=== PATIENT | female | born 1980 | race Caucasian/White ===

== ENCOUNTER 2016-02-24 17:27 | Emergency (ER) | payer MEDICAID ==
[~2016-02-24] VITALS: Ht 152.4 cm; Wt 62.5 kg
[~2016-02-24 17:27] MED LIST: FAMO-18 PO; HYDR-3498 PO; HYDR-906 PO; METR500T PO
[2016-02-24 18:10] VITALS: Ht 152.4 cm; Wt 62.5 kg
[2016-02-24] MEDS ORDERED: ONDANSETRON 4 MG INJ IV STA ×2 (20:51→22:28)
[2016-02-24] MEDS ORDERED: morphine 4 MG/ML VIAL IV STA (20:51)
[2016-02-24] MEDS ORDERED: SOD CHLORIDE 0.9% 1,000 ML IV STA (20:51)
--- NOTE | 2016-02-24 21:27 | RADRPT ---
PROCEDURE: US Abdomen (right upper quadrant). CLINICAL INDICATION: Abdominal pain TECHNIQUE: Multiple real-time longitudinal and transverse images of the right upper quadrant of th e abdomen were acquired utilizing a curved array transducer. Images were reviewed on a high-resoluti on PACS workstation. COMPARISON: Correlation abdominal CT 11/27/2015 FINDINGS: The liver measures 15 cm length. The gallbladder is absent. The common bile duct measures 5 mm. The portal vein is patent. No right renal hydronephrosis. IMPRESSION: Status post cholecystectomy. Normal caliber common bile duct. No right renal hydronephrosis. RPTAT: AA .Humberto Kelley MD, MD Date Time Electronically viewed and signed by .Humberto Kelley MD, on 02/24/2016 21:27 .T/
[2016-02-24 21:43] LABS: ADD UMIC YES; URINE BILIRUBIN (Dip) NEGATIVE (NEGATIVE); URINE BLOOD (Dip) NEGATIVE (NEGATIVE); URINE COLOR LT. YELLOW (YELLOW); URINE GLUCOSE (Dip) NEGATIVE (NEGATIVE); URINE KETONES (Dip) NEGATIVE (NEGATIVE); URINE LEUKOCYTE ESTERASE (Dip) 2+ (NEGATIVE); URINE NITRITE (Dip) NEGATIVE (NEGATIVE); URINE TOTAL PROTEIN (Dip) NEGATIVE (NEGATIVE); URINE UROBILINOGEN (Dip) 0.2 E.U./dL (0.1-1.0)
[2016-02-24 21:43] LABS: BASOPHIL # 0.1 10^3/ul (0.0-0.1); BASOPHILS % 0.5 % (0.0-2.0); EOSINOPHILS # 0.2 10^3/ul (0.0-0.5); EOSINOPHILS % 1.8 % (0.0-7.0); HEMATOCRIT 40.5 % (37.0-47.0); LYMPHOCYTES # 2.7 10^3/ul (0.8-2.9); LYMPHOCYTES % 24.4 % (15.0-51.0); MEAN CORPUSCULAR HEMOGLOBIN 28.8 pg (29.0-33.0); MEAN CORPUSCULAR HGB CONC 34.5 g/dl (32.0-37.0); MEAN CORPUSCULAR VOLUME 83.5 fl (82.0-101.0); MEAN PLATELET VOLUME 9.3 fl (7.4-10.4); MONOCYTE # 0.4 10^3/ul (0.3-0.9); MONOCYTES % 3.2 % (0.0-11.0); NEUTROPHIL # 7.7 10^3/ul (1.6-7.5); NEUTROPHILS % 70.1 % (39.0-77.0); PLATELET COUNT 271 10^3/UL (140-440); RED BLOOD COUNT 4.85 10^6/ul (4.20-5.40); RED CELL DISTRIBUTION WIDTH 13.1 % (11.5-14.5)
[2016-02-24 21:44] LABS: CONDITION 1
[2016-02-24 21:50] LABS: ALBUMIN 4.9 g/dl (3.3-4.9)
[2016-02-24 21:51] LABS: POTASSIUM 3.5 mmol/L (3.5-5.1)
[2016-02-24 21:53] LABS: BACTERIA,URINE MODERATE; SQUAMOUS EPITHELIAL CELL,UR MODERATE; URINE RBCS 0-2 /HPF (0)
[2016-02-24 21:53] LABS: BILIRUBIN,INDIRECT 0.7 mg/dl (0-1.1); BILIRUBIN,TOTAL 0.7 mg/dl (0.2-1.3); CREATININE 0.62 mg/dl (0.44-1.00)
[2016-02-24 21:54] LABS: ALBUMIN/GLOBULIN RATIO 1.13; CALCIUM 9.2 mg/dl (8.4-10.2); TOTAL PROTEIN 9.2 g/dl (6.1-8.1)
[2016-02-24] MEDS ORDERED: HYDR-902 PO (22:04)
[2016-02-24] MEDS ORDERED: NITR-58 PO (22:04)
--- NOTE | 2016-02-24 22:08 | ERD ---
ER Documentation Chief Complaint Date/Time DATE: 02/24/16 TIME: 22:05 Chief Complaint Pt with AP and vomiting X 3 days. HPI Patient is a 35-year-old female who presents complaining of right upper quadrant abdominal pain for 3 days. She admits to vomiting. Pain is 10 out of 10. Denies any dysuria or hematuria but does admit to urinary frequency. Denies fever. Denies any change with food. ROS All systems reviewed and are negative except as per history of present illness. Medications Home Meds Active Scripts Hydrocodone/Acetaminophen ([place] 10-325 Tablet) 1 Each Tablet, 1 TAB PO Q6H Y for PAIN, #20 TAB Prov:JAXON MORAN PA-C 02/24/16 Nitrofurantoin Monohyd Macrocr* (Macrobid*) 100 Mg Capsr, 100 MG PO BID for 7 Days, CAP Prov:JAXON MORAN PA-C 02/24/16 Hydrocodone/Acetaminophen ([place] 5-325 Tablet) 1 Each Tablet, 1 TAB PO Q6H Y for PAIN, #7 TAB Prov:NHI MOHAMUD PA-C 11/27/15 Famotidine* (Pepcid*) 20 Mg Tablet, 20 MG PO BID for 4 Days, #30 TAB Prov:NHI MOHAMUD PA-C 11/27/15 Metronidazole* (Flagyl*) 500 Mg Tablet, 500 MG PO Q8 for 7 Days, TAB Prov:[employer] COMMUNICATIONS MANAGER 02/22/15 Hydrocodone Bit-Acetaminophen* ([place]*) 5-325 Mg Tab, 1 TAB PO Q6H Y for PAIN, # 20 TAB Prov:[employer] COMMUNICATIONS MANAGER 02/22/15 Allergies Allergies: Coded Allergies: ciprofloxacin (Verified Allergy, Severe, NAUSEA, DYSPNEA, RIGIDITY OF HANDS, LEGS, 02/20/15) ampicillin (Verified Allergy, Unknown, RASH, 02/20/15) PMhx/Soc History of Surgery: Yes ( ) Anesthesia Reaction: No Hx Neurological Disorder: No Hx Respiratory Disorders: No Hx Cardiac Disorders: No Hx Psychiatric Problems: No Hx Miscellaneous Medical Probl: No (gallstones) Hx Alcohol Use: No Hx Substance Use: No Hx Tobacco Use: No FmHx Family History: No diabetes Physical Exam Vitals Vital Signs Date Time Temp Pulse Resp B/P Pulse Ox O2 Delivery O2 Flow Rate FiO2 02/24/16 18:10 98.0 95 20 136/79 99 Physical Exam General: well developed, well nourished, alert, nontoxic, no distress Head: normocephalic, atraumatic Neck: Supple, nontender, no lymphadenopathy, no midline tenderness Oropharynx: no tonsilar erythema or edema, uvula midline, no exudates, no kissing tonsils, no drooling Respiratory: Clear to auscaultation bilaterally, speaks in full sentences, no use of accesory muscles or labored breathing, no rales, ronchi, or wheezing Cardiovascular: RRR, No murmurs GI: soft, non tender, non distended, negative murphys sign, negative mcburneys point tenderness, no cva tenderness bilaterally, no rebound or guarding Back: no midline tenderness, no step offs or bony abnormalities, sensation to light touch in tact Result Diagram: 02/24/16210402/24/162104 Results 24 hrs Laboratory Tests Test 02/24/16 21:00 02/24/16 21:05 Urine Bacteria MODERATE Urine Bilirubin NEGATIVE Urine Clarity SL HAZY Urine Color LT. YELLOW Urine Glucose NEGATIVE% Urine Hemoglobin NEGATIVE Urine Ketones NEGATIVE Urine Leukocyte Esterase 2+ Urine Microscopic RBC 0-2/HPF Urine Microscopic WBC 10-25/HPF Urine Nitrite NEGATIVE Urine Specific [place] 1.010 Urine Squamous Epithelial Cells MODERATE Urine Total Protein NEGATIVE Urine Urobilinogen 0.2 E.U./dL Urine pH 6.0 Alanine Aminotransferase (ALT/SGPT) 21IU/L Albumin 4.9g/dl Albumin/Globulin Ratio 1.13 Alkaline Phosphatase 82IU/L Anion Gap 22 Aspartate Amino Transf (AST/SGOT) 26IU/L Basophils # 0.110^3/ul Basophils % 0.5% Blood Morphology Comment Blood Urea Nitrogen 12mg/dl Calcium Level 9.2mg/dl Carbon Dioxide Level 23mmol/L Chloride Level 103mmol/L Creatinine 0.62mg/dl Direct Bilirubin 0.00mg/dl Eosinophils # 0.210^3/ul Eosinophils % 1.8% Globulin 4.30g/dl Glucose Level 119mg/dl Hematocrit 40.5% Hemoglobin 14.0g/dl Indirect Bilirubin 0.7mg/dl Lipase 94U/L Lymphocytes # 2.710^3/ul Lymphocytes % 24.4% Mean Corpuscular Hemoglobin 28.8pg Mean Corpuscular Hemoglobin Concent 34.5g/dl Mean Corpuscular Volume 83.5fl Mean Platelet Volume 9.3fl Monocytes # 0.410^3/ul Monocytes % 3.2% Neutrophils # 7.710^3/ul Neutrophils % 70.1% Nucleated Red Blood Cells # 0.010^3/ul Nucleated Red Blood Cells % 0.0/100WBC Platelet Count 60048^3/UL Potassium Level 3.5mmol/L Red Blood Count 4.8510^6/ul Red Cell Distribution Width 13.1% Sodium Level 144mmol/L Total Bilirubin 0.7mg/dl Total Protein 9.2g/dl White Blood Count 11.010^3/ul Current Medications Medications (Trade) Dose Ordered Sig/Lalito Route PRN Reason Start Time Stop Time Status Last Admin Dose Admin Sodium Chloride (NS) 1,000 ml @ 1,000 mls/hr Q1H STAT IV 02/24/16 20:51 02/24/16 21:50 DC 02/24/16 21:09 Morphine Sulfate (morphine) 4 mg ONCE STAT IV 02/24/16 20:51 02/24/16 20:53 DC 02/24/16 21:09 Ondansetron HCl (Zofran Inj) 4 mg ONCE STAT IV 02/24/16 20:51 02/24/16 20:53 DC 02/24/16 21:09 Procedures/MDM 35-year-old female presents with right upper quadrant abdominal pain. Her vital signs are all within normal limits. Her labs are unremarkable other than mildly elevated white blood cell count of 11 and evidence of possible urinary tract infection on urinalysis. Ultrasound shows she was status post cholecystectomy. Patient was discharged with Kayli and Tami for pain control. Recommended this patient follow up with her primary care doctor within 48 hours or return to the emergency room for any worsening of symptoms. However this time I do believe there is suitable for outpatient management. I answered all their questions and they agreed with the plan and were discharged home. Departure Diagnosis: Primary Impression: Cystitis Condition: Stable Patient Instructions: Cystitis Additional Instructions: Llame al doctor SOFYA y uri shadi SELVIN PARA DENTRO DE 1-2 YI.Dgale a la secretaria que nosotros le instruimos hacer esta selvin.Avise o llame si harmon condicin se empeora antes de la selvin. Regresa aqui si peor o no mejor. JAXON MORAN PA-C Feb 24, 2016 22:08
[2016-02-24] MEDS ORDERED: HYDROmorphONE 1 MG/ML SYG IV STA (22:28)
[2016-02-24 23:17] VITALS: BP 136/79; PULSE 70; RESP 20; TEMP 98
== END 2016-02-24 23:18 | disposition home or self-care (01) ==
LOC: FTE 17:27
DX: N30.90 Cystitis, unspecified without hematuria (principal); R11.10 Vomiting, unspecified
CPT/HCPCS: 76705; 80053; 81001; 83690; 85025; J1170; J2270; J2405; J7030; 36415; 81003; 96361; 96374; 96375; 96376

== ENCOUNTER 2016-03-18 07:06 | Emergency (ER) | payer MEDICAID ==
[~2016-03-18] VITALS: Wt 68.0 kg
[~2016-03-18 07:06] MED LIST changes: +HYDR-902 PO; +NITR-58 PO
[2016-03-18] MEDS ORDERED: SOD CHLORIDE 0.9% 1,000 ML IV STA (07:17)
[2016-03-18] MEDS ORDERED: KETOROLAC 30 MG INJ IV STA (07:17)
[2016-03-18] MEDS ORDERED: METOCLOPRAMIDE 10 MG INJ IV STA (07:17)
[2016-03-18] MEDS ORDERED: morphine 4 MG/ML VIAL IV STA ×2 (07:17→08:09)
--- NOTE | 2016-03-18 07:26 | ERD ---
ER Documentation Chief Complaint Date/Time DATE: 03/18/16 TIME: 07:22 Chief Complaint HEADACHE X 2 DAYS HPI 35-year-old otherwise healthy female presents to the emergency department for a gradually worsening headache which began 2 days ago. Patient states that she woke up with a headache and since that time he has been worsening. Patient describes it as a 10 out of 10 throbbing bilateral pain extending from her posterior neck towards the occipital region. Patient states she is attempted to treat her pain today with 2 ibuprofen without relief. She denies any trauma , fever, loss of vision, neurologic deficits, vomiting, neck stiffening, or neck pain. Patient does note nausea currently. Patient reports a history of mild headaches but has not experienced one of this intensity. ROS All systems reviewed and are negative except as per history of present illness. Medications Home Meds Active Scripts Cyclobenzaprine Hcl* (Cyclobenzaprine Hcl*) 10 Mg Tablet, 10 MG PO TID, #15 TAB Prov:PAVEL ROSS PA-C 03/18/16 Naproxen* (Naprosyn*) 500 Mg Tablet, 500 MG PO BID Y for PAIN AND/OR INFLAMMATION, #30 TAB Prov:PAVEL ROSS PA-C 03/18/16 Hydrocodone/Acetaminophen ([place] 10-325 Tablet) 1 Each Tablet, 1 TAB PO Q6H Y for PAIN, #7 TAB Prov:PAVEL ROSS PA-C 03/18/16 Hydrocodone/Acetaminophen ([place] 10-325 Tablet) 1 Each Tablet, 1 TAB PO Q6H Y for PAIN, #20 TAB Prov:JAXON MORAN PA-C 02/24/16 Nitrofurantoin Monohyd Macrocr* (Macrobid*) 100 Mg Capsr, 100 MG PO BID for 7 Days, CAP Prov:JAXON MORAN PA-C 02/24/16 Hydrocodone/Acetaminophen ([place] 5-325 Tablet) 1 Each Tablet, 1 TAB PO Q6H Y for PAIN, #7 TAB Prov:NHI MOHAMUD PA-C 11/27/15 Famotidine* (Pepcid*) 20 Mg Tablet, 20 MG PO BID for 4 Days, #30 TAB Prov:NHI MOHAMUD PA-C 11/27/15 Metronidazole* (Flagyl*) 500 Mg Tablet, 500 MG PO Q8 for 7 Days, TAB Prov:[employer] OPERATIONS MANAGER 02/22/15 Hydrocodone Bit-Acetaminophen* ([place]*) 5-325 Mg Tab, 1 TAB PO Q6H Y for PAIN, # 20 TAB Prov:[employer] OPERATIONS MANAGER 02/22/15 Allergies Allergies: Coded Allergies: ciprofloxacin (Verified Allergy, Severe, NAUSEA, DYSPNEA, RIGIDITY OF HANDS, LEGS, 02/20/15) ampicillin (Verified Allergy, Unknown, RASH, 02/20/15) PMhx/Soc History of Surgery: Yes ( ) Anesthesia Reaction: No Hx Neurological Disorder: No Hx Respiratory Disorders: No Hx Cardiac Disorders: No Hx Psychiatric Problems: No Hx Miscellaneous Medical Probl: No (gallstones) Hx Alcohol Use: No Hx Substance Use: No Hx Tobacco Use: No Physical Exam Vitals Vital Signs Date Time Temp Pulse Resp B/P Pulse Ox O2 Delivery O2 Flow Rate FiO2 03/18/16 07:10 98.0 117 18 165/98 98 Physical Exam Const: Well-developed, well-nourished, nontoxic appearing, well-hydrated Head: Atraumatic Eyes: Normal Conjunctiva ENT: Normal External Ears, Nose and Mouth. Neck: Severely tense cervical paraspinous muscles palpated. Slightly limited range of motion from side to side. Full range of motion upon flexion and extension of neck.~ No meningismus. Resp: Clear to auscultation bilaterally Cardio: Regular rate and rhythm, no murmurs Abd: Soft, non tender, non distended. Normal bowel sounds Skin: No petechiae or rashes Back: No midline or flank tenderness Ext: No cyanosis, or edema Neur: Awake and alert Psych: Normal Mood and Affect Results 24 hrs Current Medications Medications (Trade) Dose Ordered Sig/Lalito Route PRN Reason Start Time Stop Time Status Last Admin Dose Admin Sodium Chloride (NS) 1,000 ml @ 1,000 mls/hr Q1H STAT IV 03/18/16 07:17 03/18/16 08:16 DC 03/18/16 07:27 Metoclopramide HCl (Reglan) 10 mg ONCE STAT IV 03/18/16 07:17 03/18/16 07:20 DC 03/18/16 07:26 Morphine Sulfate (morphine) 4 mg ONCE STAT IV 03/18/16 07:17 03/18/16 07:20 DC 03/18/16 07:27 Ketorolac Tromethamine (Toradol) 30 mg ONCE STAT IV 03/18/16 07:17 03/18/16 07:20 DC 03/18/16 07:27 Ondansetron HCl (Zofran Inj) 4 mg STK-MED ONCE .ROUTE 03/18/16 08:05 03/18/16 08:06 DC Ondansetron HCl (Zofran Inj) 4 mg ONCE STAT IV 03/18/16 08:09 03/18/16 08:10 DC 03/18/16 08:13 Morphine Sulfate (morphine) 4 mg ONCE STAT IV 03/18/16 08:09 03/18/16 08:10 DC 03/18/16 08:13 Procedures/MDM 35-year-old otherwise healthy female presents to the emergency department with a gradually worsening headache 2 days. Vital signs reviewed. Patient is currently afebrile. Non-hypoxic. POC urine negative. Patient given a bolus of fluids, morphine, Toradol, Reglan while in the ER today. Patient reports improvement of symptoms. Patient's history and clinical exam findings most consistent with tension type headache. At this time I have low suspicion for subarachnoid hemorrhage, meningitis, epidural abscess, temporal arteriolitis, pseudotumor cerebri, subdural hemorrhage, cerebral ischemia, arterial dissection, or . Based on patient's history of present illness and physical examination the decision was made to discharge. The patient was re-evaluated after ED treatment and stabilizing measures, and symptoms have improved. There is no evidence of life threatening injuries or illnesses at this time. Patient to continue her anti-inflammatory regimen as well as lifestyle modifications to help him prevent tension type headaches as provided by myself. On re-examination, patient resting in no distress, stable vital signs, reports feeling better and safe for discharge with outpatient follow up with PMD in 1-2 days. Patient given return precautions. PAVEL ROSS PA-C Mar 18, 2016 07:26
[2016-03-18] MEDS ORDERED: ONDANSETRON 4 MG INJ ONE (08:05)
[2016-03-18] MEDS ORDERED: ONDANSETRON 4 MG INJ IV STA (08:09)
[2016-03-18] MEDS ORDERED: HYDR-902 PO (08:23)
[2016-03-18] MEDS ORDERED: NAPR-260 PO (08:23)
[2016-03-18] MEDS ORDERED: CYCL-319 PO (08:23)
== END 2016-03-18 08:34 | disposition home or self-care (01) ==
LOC: FTE 07:06
DX: G44.209 Tension-type headache, unspecified, not intractable (principal); R40.2142 Coma scale, eyes open, spontaneous, at arrival to emergency department; R40.2252 Coma scale, best verbal response, oriented, at arrival to emergency department; R40.2362 Coma scale, best motor response, obeys commands, at arrival to emergency department
CPT/HCPCS: J1885; J2270; J2405; J2765; J7030; 96374; 96375; 96376

== ENCOUNTER 2016-03-24 14:08 | Emergency (ER) | payer MEDICAID ==
[~2016-03-24] VITALS: Wt 61.5 kg
[~2016-03-24 14:08] MED LIST changes: +CYCL-319 PO; +NAPR-260 PO
[2016-03-24] MEDS ORDERED: KETOROLAC 60 MG INJ IM STA (15:12)
[2016-03-24] MEDS ORDERED: LORAZEPAM 0.5 MG TAB PO ONE (15:30)
[2016-03-24] MEDS ORDERED: traMADol 50 MG TAB PO ONE (15:30)
[2016-03-24 15:36] LABS: URINE BLOOD (Dip) POC Trace-intact (NEGATIVE)
--- NOTE | 2016-03-24 15:55 | RADRPT ---
PROCEDURE: XR Chest AP portable CLINICAL INDICATION: Chest pain TECHNIQUE: An AP portable radiograph of the chest was submitted. COMPARISON: 08/23/2013 FINDINGS: Support Hardware: None Cardiovascular: The cardiovascular silhouette appears unremarkable. Lung Hopkins: The lung hopkins appear clear with no nodule, alveolar infiltrate, for a interstitial pr ominence evident. Pleural Spaces: No pneumothorax or pleural effusion is identified. Osseous Structures: The osseous structures appear intact. Soft Tissues: The soft tissues appear unremarkable. IMPRESSION: Stable unremarkable portable chest. Physician Teo Date Time Electronically viewed and signed by Claire Hood Physician on 03/24/2016 15:55 RH/
--- NOTE | 2016-03-24 16:10 | RADRPT ---
PROCEDURE: XR Cervical Spine. CLINICAL INDICATION: Neck pain. TECHNIQUE: Three views of the cervical spine were performed. Frontal, lateral, and AP open-mouth o dontoid. The images were reviewed on a PACS workstation. COMPARISON: None. FINDINGS: There is normal stature and alignment of the vertebrae. There is no fracture. There is no lytic or blastic lesion. The disk height is normal. The prevertebral soft tissues are normal. IMPRESSION: 1. Unremarkable images of the cervical spine. RPTAT: QQ .Royal Ceja MD, MD Date Time Electronically viewed and signed by .Royal Ceja MD, MD on 03/24/2016 16:10 .R/
[2016-03-24] MEDS ORDERED: LORA-441 PO (16:52)
[2016-03-24] MEDS ORDERED: CYCL-319 PO (16:52)
[2016-03-24] MEDS ORDERED: IBUP-1542 PO (16:52)
[2016-03-24] MEDS ORDERED: TRAM50TA2 PO (16:53)
--- NOTE | 2016-03-24 16:59 | ERD ---
ER Documentation Chief Complaint Date/Time DATE: 03/24/16 TIME: 16:56 Chief Complaint CHEST PAIN WITH NO COUGH OR URI SYMPTOMS, NECK PAIN. NO TRAUMA. MILD SOB HPI This 35-year-old female awoke with pain in her neck radiating to her chest last day. Denies any fever, cough, sore throat. She denies any bowel or bladder incontinence, urinary complaints ROS All systems reviewed and are negative except as per history of present illness. Medications Home Meds Active Scripts Tramadol HCl (Tramadol HCl) 50 Mg Tablet, 50 MG PO Q4 Y for PAIN, #15 TAB Prov:DESIREE NARVAEZ MD 03/24/16 Lorazepam* (Ativan*) 0.5 Mg Tablet, 0.5 MG PO Q8, #10 TAB Prov:DESIREE NARVAEZ MD 03/24/16 Cyclobenzaprine Hcl* (Cyclobenzaprine Hcl*) 10 Mg Tablet, 10 MG PO TID, #15 TAB Prov:DESIREE NARVAEZ MD 03/24/16 Ibuprofen* (Motrin*) 600 Mg Tab, 600 MG PO Q6, #15 TAB Prov:DESIREE NARVAEZ MD 03/24/16 Cyclobenzaprine Hcl* (Cyclobenzaprine Hcl*) 10 Mg Tablet, 10 MG PO TID, #15 TAB Prov:PAVEL ROSS PA-C 03/18/16 Naproxen* (Naprosyn*) 500 Mg Tablet, 500 MG PO BID Y for PAIN AND/OR INFLAMMATION, #30 TAB Prov:PAVEL ROSS PA-C 03/18/16 Hydrocodone/Acetaminophen ([place] 10-325 Tablet) 1 Each Tablet, 1 TAB PO Q6H Y for PAIN, #7 TAB Prov:PAVEL ROSS PA-C 03/18/16 Hydrocodone/Acetaminophen ([place] 10-325 Tablet) 1 Each Tablet, 1 TAB PO Q6H Y for PAIN, #20 TAB Prov:JAXON MORAN PA-C 02/24/16 Nitrofurantoin Monohyd Macrocr* (Macrobid*) 100 Mg Capsr, 100 MG PO BID for 7 Days, CAP Prov:JAXON MORAN PA-C 02/24/16 Hydrocodone/Acetaminophen ([place] 5-325 Tablet) 1 Each Tablet, 1 TAB PO Q6H Y for PAIN, #7 TAB Prov:NHI MOHAMUD PA-C 11/27/15 Famotidine* (Pepcid*) 20 Mg Tablet, 20 MG PO BID for 4 Days, #30 TAB Prov:NHI MOHAMUD PA-C 11/27/15 Metronidazole* (Flagyl*) 500 Mg Tablet, 500 MG PO Q8 for 7 Days, TAB Prov:CORONA BLUE MACHINE CRATER 02/22/15 Hydrocodone Bit-Acetaminophen* ([place]*) 5-325 Mg Tab, 1 TAB PO Q6H Y for PAIN, # 20 TAB Prov:CORONA BLUE MACHINE CRATER 02/22/15 Allergies Allergies: Coded Allergies: ciprofloxacin (Verified Allergy, Severe, NAUSEA, DYSPNEA, RIGIDITY OF HANDS, LEGS, 02/20/15) ampicillin (Verified Allergy, Unknown, RASH, 02/20/15) PMhx/Soc History of Surgery: Yes ( ) Anesthesia Reaction: No Hx Neurological Disorder: No Hx Respiratory Disorders: No Hx Cardiac Disorders: No Hx Psychiatric Problems: No Hx Miscellaneous Medical Probl: No (gallstones) Hx Alcohol Use: No Hx Substance Use: No Hx Tobacco Use: No Smoking Status: Never smoker Physical Exam Vitals Vital Signs Date Time Temp Pulse Resp B/P Pulse Ox O2 Delivery O2 Flow Rate FiO2 03/24/16 14:24 99.1 119 20 139/84 99 Physical Exam Const: [] Alert, uncomfortable due to pain but no apparent distress Head: Atraumatic Eyes: Normal Conjunctiva ENT: Normal External Ears, Nose and Mouth. Neck: Full range of motion..~ No meningismus. Generalized tenderness primarily in the right C3-C4 paraspinous muscles. No midline tenderness or deformities. Is some tenderness in the right anterior chest wall as well. Resp: Clear to auscultation bilaterally Cardio: Regular rate and rhythm, no murmurs Abd: Soft, non tender, non distended. Normal bowel sounds Skin: No petechiae or rashes Back: No midline or flank tenderness Ext: No cyanosis, or edema Neur: Awake and alert. Patient has normal gait without appreciable focal neurologic deficits. Psych: Normal Mood and Affect Results 24 hrs Laboratory Tests Test 03/24/16 15:37 Bedside Urine Blood Trace-intact Bedside Urine Glucose (UA) Negative Bedside Urine Ketones (LAB) Negative Bedside Urine Leukocyte Esterase (L 3+ Bedside Urine Nitrite (LAB) Negative Bedside Urine Protein (LAB) Negative Bedside Urine pH (LAB) 7.5 Current Medications Medications (Trade) Dose Ordered Sig/Lalito Route PRN Reason Start Time Stop Time Status Last Admin Dose Admin Ketorolac Tromethamine (Toradol) 60 mg ONCE STAT IM 03/24/16 15:12 03/24/16 15:15 DC 03/24/16 15:49 Tramadol HCl (Ultram) 50 mg ONCE ONCE PO 03/24/16 15:30 03/24/16 15:31 DC 03/24/16 15:50 Lorazepam (Ativan) 0.5 mg ONCE ONCE PO 03/24/16 15:30 03/24/16 15:31 DC 03/24/16 15:49 Procedures/MDM X-ray C spine 3V Interpreted by me: Bones: No fracture Joints: No dislocation Foreign body: None impression-normal C-spine x-ray Chest X-ray 1V Interpreted by me: Soft Tissue: No acute abnormalities Bones: No acute abnormalities Mediastinum/Cardiac Silhouette/Lungs: [No acute abnormalities]. Impression- normal 1 view chest x-ray EKG: Rate/Rhythm: [Normal Sinus Rhythm] rate equals 92. QRS, ST, T-waves: [No changes consistent w/ acute ischemia] Impression: [No evidence of ischemia or arrhythmia] Patient was given Toradol 60 mg IM and tramadol 50 mg by mouth and Ativan 0.5 mg for complaints of anxiety related to her symptoms Patient presents with neck pain which is nontraumatic radiating to her right chest and arm suggestive of cervical radicular pain. Signs and symptoms not consistent with epidural abscess, CVA, acute coronary syndrome, pneumonia, or other causes of right arm pain and neck pain. She will discharged home with prescription of tramadol, short course of Ativan and ibuprofen. Patient has admitted sensation of anxiety history of anxiety present pain medications in the abdomen may help with this. Patient is advised to follow-up with primary care doctor this week return to the ER for new or worsening symptoms. The patient was stable with no new complaints during the ER course. Clinically, there is no current evidence to suggest meningitis, sepsis, acute abdomen, pneumonia, acute coronary syndrome, dissection, pulmonary embolism, or any other emergent condition appearing to require further evaluation or hospitalization. The patient should certainly return for any new or worsening symptoms per the aftercare instructions. They should otherwise follow-up with her primary care doctor for reevaluation this week. Departure Diagnosis: Primary Impression: Cervical radiculitis Condition: Stable Patient Instructions: Neck Pain, No Trauma, Radiculopathy, Cervical Referrals: [facility] Usted se taveras hecho un examen mdico de control que le indica que no est en shadi condicin que requiera tratamiento urgente en el Departamento de Emergencia. Un estudio ms profundo y el tratamiento de harmon condicin pueden esperar sin ningn riesgo hasta que usted sea atendida/o en el consultorio de harmon mdico o shadi cl frankie. Es responsabilidad suya arreglar shadi saima para el seguimiento del aminta. MANEJO DE CONDICIONES NO URGENTES EN EL FUTURO 1) Si usted tiene un mdico de atencin primaria: Usted debera llamar a harmon mdico de atencin primaria antes de venir al departamento de emergencia. Despus de las horas de consultorio, harmon doctor o harmon asociado/a est disponible por telfono. El mdico o enfermero de flora en el servicio telefnico puede asesorarle por juan medio para atender el problema, o aminta contrario se puede programar shadi saima. 2) Si usted no tiene un mdico de atencin primaria: Llame al mdico o clnica de referencia que aparece abajo keily las horas de consultorio para hacer shadi saima para que le vean. CLINICAS: [facility] [phone] [facility] [phone] [facility] [phone] [facility] [phone] [facility] [phone] [facility] [phone] [address] Additional Instructions: Examines normal hoy. Cheque otro vez con harmon doctor primario en el proximo cleary or regresa para mas o nueva simptomas. DESIREE NARVAEZ MD Mar 24, 2016 16:59
[2016-03-24 17:32] VITALS: BP 135/82; PULSE 70; RESP 18; TEMP 98.7
== END 2016-03-24 17:33 | disposition home or self-care (01) ==
LOC: FTE 14:08
DX: M54.12 Radiculopathy, cervical region (principal); R07.9 Chest pain, unspecified
CPT/HCPCS: 71010; 72040; 81003; 93005; 96372; J1885; Z7502; Z7610

== ENCOUNTER 2016-03-28 11:43 | Emergency (ER) | payer MEDICAID ==
[~2016-03-28] VITALS: Wt 69.0 kg
[~2016-03-28 11:43] MED LIST changes: +IBUP-1542 PO; +LORA-441 PO; +TRAM50TA2 PO
[2016-03-28] MEDS ORDERED: ACET325T33 PO (13:18)
[2016-03-28] MEDS ORDERED: AZIT500T3 PO (13:18)
--- NOTE | 2016-03-28 13:25 | ERD ---
ER Documentation Chief Complaint Date/Time DATE: 03/28/16 TIME: 13:21 Chief Complaint SORE THROAT AND FEVERS SINCE WEEK. NO RELEIF WITH MEDS HPI This is a 35-year-old female presenting to the emergency room complaining of sore throat, fever since Monday. Patient also complains of neck pain since she has been seen here on Monday, patient had a full evaluation with EKG and chest x-ray which was unremarkable, she was diagnosed with cervical radiculopathy and was given benzodiazepine, muscle relaxer and ibuprofen, patient states the main medications have not given her any relief. Patient admits to having difficulty swallowing. She states that she has an allergy to ampicillin and Cipro she denies cough ROS All systems reviewed and are negative except as per history of present illness. Medications Home Meds Active Scripts Azithromycin* (Zithromax*) 500 Mg Tablet, 500 MG PO DAILY for 5 Days, TAB Prov:LAURA CUEVASC 03/28/16 Acetaminophen* (Tylenol*) 325 Mg Tablet, 2 TAB PO Q4 Y for PAIN AND OR ELEVATED TEMP, #30 TAB Prov:LAURA CUEVASC 03/28/16 Tramadol HCl (Tramadol HCl) 50 Mg Tablet, 50 MG PO Q4 Y for PAIN, #15 TAB Prov:DESIREE NARVAEZ MD 03/24/16 Lorazepam* (Ativan*) 0.5 Mg Tablet, 0.5 MG PO Q8, #10 TAB Prov:DESIREE NARVAEZ MD 03/24/16 Cyclobenzaprine Hcl* (Cyclobenzaprine Hcl*) 10 Mg Tablet, 10 MG PO TID, #15 TAB Prov:DESIREE NARVAEZ MD 03/24/16 Ibuprofen* (Motrin*) 600 Mg Tab, 600 MG PO Q6, #15 TAB Prov:DESIREE NARVAEZ MD 03/24/16 Cyclobenzaprine Hcl* (Cyclobenzaprine Hcl*) 10 Mg Tablet, 10 MG PO TID, #15 TAB Prov:PAVEL ROSS PA-C 03/18/16 Naproxen* (Naprosyn*) 500 Mg Tablet, 500 MG PO BID Y for PAIN AND/OR INFLAMMATION, #30 TAB Prov:PAVEL ROSS PA-C 03/18/16 Hydrocodone/Acetaminophen ([employer] 10-325 Tablet) 1 Each Tablet, 1 TAB PO Q6H Y for PAIN, #7 TAB Prov:PAVEL ROSS PA-C 03/18/16 Hydrocodone/Acetaminophen ([employer] 10-325 Tablet) 1 Each Tablet, 1 TAB PO Q6H Y for PAIN, #20 TAB Prov:JAXON MORAN PA-C 02/24/16 Nitrofurantoin Monohyd Macrocr* (Macrobid*) 100 Mg Capsr, 100 MG PO BID for 7 Days, CAP Prov:JAXON MORAN PA-C 02/24/16 Hydrocodone/Acetaminophen ([employer] 5-325 Tablet) 1 Each Tablet, 1 TAB PO Q6H Y for PAIN, #7 TAB Prov:NHI MOHAMUD PA-C 11/27/15 Famotidine* (Pepcid*) 20 Mg Tablet, 20 MG PO BID for 4 Days, #30 TAB Prov:NHI MOHAMUD PA-C 11/27/15 Metronidazole* (Flagyl*) 500 Mg Tablet, 500 MG PO Q8 for 7 Days, TAB Prov:CORONA BLUE ASSOCIATE BRAND MANAGER 02/22/15 Hydrocodone Bit-Acetaminophen* ([employer]*) 5-325 Mg Tab, 1 TAB PO Q6H Y for PAIN, # 20 TAB Prov:CORONA BLUE ASSOCIATE BRAND MANAGER 02/22/15 Allergies Allergies: Coded Allergies: ciprofloxacin (Verified Allergy, Severe, NAUSEA, DYSPNEA, RIGIDITY OF HANDS, LEGS, 02/20/15) ampicillin (Verified Allergy, Unknown, RASH, 02/20/15) PMhx/Soc History of Surgery: Yes ( ) Anesthesia Reaction: No Hx Neurological Disorder: No Hx Respiratory Disorders: No Hx Cardiac Disorders: No Hx Psychiatric Problems: No Hx Miscellaneous Medical Probl: No (gallstones) Hx Alcohol Use: No Hx Substance Use: No Hx Tobacco Use: No Physical Exam Vitals Vital Signs Date Time Temp Pulse Resp B/P Pulse Ox O2 Delivery O2 Flow Rate FiO2 03/28/16 11:54 99.5 105 24 134/85 99 Physical Exam GENERAL: well-developed/well-nourished, in no apparent distress, non-toxic appearing HEAD: NC/AT, no swelling noted in frontal or maxillary areas EARS: bilateral tympanic membrane is intact without erythema or effusion NARES: nares congested THROAT: oropharynx mild erythematous without tonsillar exudates,mild tonsil enlargement, post nasal drip EYES: Conjunctiva normal NECK: Supple, no lymphadenopathy PULM: CTA bilaterally, no rales, rhonchi, or wheezing heard CV: Normal S1S2, RRR, good capillary refill GI: Soft, non-distended, normal bowel sounds, non-tender BACK: No midline tenderness, no masses EXT No clubbing, cyanosis, or edema NEURO: Alert and Orientated SKIN: Intact, normal turgor PSYCH: Normal mood and mentation Procedures/MDM This is a 35-year-old female presenting to the emergency room complaining of sore throat, fever and neck pain since Monday. Patient has been here on Monday and was given muscle relaxers, benzodiazepine was diagnosed with cervical radiculopathy, patient said that she had no relief with medications. I reviewed patient's past chart. I have low suspicion for vertebral fracture or meningitis. Patient did not have any meningeal signs, she is tender to palpation in the muscular region. Patient did have evidence of cervical lymphadenopathy and states that she had a fever. Patient is afebrile without any tonsillar exudates in the ED. She met 2 out of 4 criteria and [facility], this is likely a viral pharyngitis however strep pharyngitis was not excluded. Patient will be empirically treated with azithromycin 500 mg for 5 days for possible strep. I discussed with patient that this may be viral. I discussed that she is suitable to follow-up with her primary care physician. Patient is healing stable for discharge with intact airways. Discussed return to the ER for any worsening symptoms. Patient understands and agrees with this plan. Departure Diagnosis: Primary Impression: Pharyngitis Pharyngitis/tonsillitis etiology: unspecified etiology Qualified Code: J02.9 - Pharyngitis, unspecified etiology Additional Impression: Neck pain Condition: Fair Patient Instructions: Neck Pain, No Trauma, Pharyngitis, Strep (Presumed), Pharyngitis, Viral Referrals: [facility] Additional Instructions: Visite a [facility] [place] para un EXAMEN.Regrese a estas instalaciones si no se mejora cally esperbamos o cally le dijimos. [place] toda la medicina amy y cally se le indic. Regrese a estas instalaciones si no se mejora cally esperbamos o cally le dijimos. LAURA CUEVAS PA-C Mar 28, 2016 13:25
== END 2016-03-28 13:30 | disposition home or self-care (01) ==
LOC: FTE 11:43
DX: J02.9 Acute pharyngitis, unspecified (principal); M54.2 Cervicalgia
CPT/HCPCS: 99283

== ENCOUNTER 2016-05-13 12:11 | Emergency (ER) | payer MEDICAID ==
[~2016-05-13] VITALS: Wt 68.0 kg
[~2016-05-13 12:11] MED LIST changes: +ACET325T33 PO; +AZIT500T3 PO
[2016-05-13] MEDS ORDERED: DIPHENHYDRAMINE 50 MG INJ IV ONE (13:00)
[2016-05-13] MEDS ORDERED: SOD CHLORIDE 0.9% 500 ML IV ONE (13:00)
[2016-05-13] MEDS ORDERED: METOCLOPRAMIDE 10 MG INJ IV ONE (13:00)
[2016-05-13] MEDS ORDERED: NAPR-688 PO (13:49)
--- NOTE | 2016-05-13 13:49 | ERD ---
ER Documentation Chief Complaint Date/Time DATE: 05/13/16 TIME: 13:45 Chief Complaint HEADACHE X 3 DAYS HPI This 35-year-old female presents with headache for 3 days. The headache began gradually but slowly got worse. It is a bandlike sensation involving her forehead all the way back to the back of her head. She also has left mild facial numbness. She denies any focal weaknesses or any symptoms in any other part of her body. She does have nausea and some dizziness with a headache. Denies head injury. This is not the worst headache of her life. No fevers or chills. ROS All systems reviewed and are negative except as per history of present illness. Medications Home Meds Active Scripts Azithromycin* (Zithromax*) 500 Mg Tablet, 500 MG PO DAILY for 5 Days, TAB Prov:LAURA CUEVAS PA-C 03/28/16 Acetaminophen* (Tylenol*) 325 Mg Tablet, 2 TAB PO Q4 Y for PAIN AND OR ELEVATED TEMP, #30 TAB Prov:LAURA CUEVAS PA-C 03/28/16 Tramadol HCl (Tramadol HCl) 50 Mg Tablet, 50 MG PO Q4 Y for PAIN, #15 TAB Prov:DESIREE NARVAEZ MD 03/24/16 Lorazepam* (Ativan*) 0.5 Mg Tablet, 0.5 MG PO Q8, #10 TAB Prov:DESIREE NARVAEZ MD 03/24/16 Cyclobenzaprine Hcl* (Cyclobenzaprine Hcl*) 10 Mg Tablet, 10 MG PO TID, #15 TAB Prov:DESIREE NARVAEZ MD 03/24/16 Ibuprofen* (Motrin*) 600 Mg Tab, 600 MG PO Q6, #15 TAB Prov:DESIREE NARVAEZ MD 03/24/16 Cyclobenzaprine Hcl* (Cyclobenzaprine Hcl*) 10 Mg Tablet, 10 MG PO TID, #15 TAB Prov:PAVEL ROSS PA-C 03/18/16 Naproxen* (Naprosyn*) 500 Mg Tablet, 500 MG PO BID Y for PAIN AND/OR INFLAMMATION, #30 TAB Prov:PAVEL ROSS PA-C 03/18/16 Hydrocodone/Acetaminophen ([place] 10-325 Tablet) 1 Each Tablet, 1 TAB PO Q6H Y for PAIN, #7 TAB Prov:PAVEL ROSS PA-C 03/18/16 Hydrocodone/Acetaminophen ([place] 10-325 Tablet) 1 Each Tablet, 1 TAB PO Q6H Y for PAIN, #20 TAB Prov:JAXON MORAN PA-C 02/24/16 Nitrofurantoin Monohyd Macrocr* (Macrobid*) 100 Mg Capsr, 100 MG PO BID for 7 Days, CAP Prov:JAXON MORAN PA-C 02/24/16 Hydrocodone/Acetaminophen ([place] 5-325 Tablet) 1 Each Tablet, 1 TAB PO Q6H Y for PAIN, #7 TAB Prov:NHI MOHAMUD PA-C 11/27/15 Famotidine* (Pepcid*) 20 Mg Tablet, 20 MG PO BID for 4 Days, #30 TAB Prov:NHI MOHAMUD PA-C 11/27/15 Metronidazole* (Flagyl*) 500 Mg Tablet, 500 MG PO Q8 for 7 Days, TAB Prov:CORONA BLUE SCREW MACHINE SETTER 02/22/15 Hydrocodone Bit-Acetaminophen* ([place]*) 5-325 Mg Tab, 1 TAB PO Q6H Y for PAIN, # 20 TAB Prov:CORONA BLUE SCREW MACHINE SETTER 02/22/15 Allergies Allergies: Coded Allergies: ciprofloxacin (Verified Allergy, Severe, NAUSEA, DYSPNEA, RIGIDITY OF HANDS, LEGS, 02/20/15) ampicillin (Verified Allergy, Unknown, RASH, 02/20/15) PMhx/Soc History of Surgery: Yes ( ) Anesthesia Reaction: No Hx Neurological Disorder: No Hx Respiratory Disorders: No Hx Cardiac Disorders: No Hx Psychiatric Problems: No Hx Miscellaneous Medical Probl: No (gallstones) Hx Alcohol Use: No Hx Substance Use: No Hx Tobacco Use: No Physical Exam Vitals Vital Signs Date Time Temp Pulse Resp B/P Pulse Ox O2 Delivery O2 Flow Rate FiO2 05/13/16 12:14 98.0 91 18 141/90 99 Physical Exam Const: [] No distress Head: Atraumatic Eyes: Normal Conjunctiva, EOMI, PRL ENT: Normal External Ears, Nose and Mouth. Neck: Full range of motion..~ No meningismus. Neur: Awake and alert and oriented 3, cranial nerves II through XII intact, no cerebellar deficits, normal gait Results 24 hrs Current Medications Medications (Trade) Dose Ordered Sig/Lalito Route PRN Reason Start Time Stop Time Status Last Admin Dose Admin Sodium Chloride (NS) 500 ml @ 500 mls/hr Q1H ONCE IV 05/13/16 13:00 05/13/16 13:59 05/13/16 12:53 Diphenhydramine HCl (Benadryl) 12.5 mg ONCE ONCE IV 05/13/16 13:00 05/13/16 13:01 DC 05/13/16 12:52 Metoclopramide HCl (Reglan) 10 mg ONCE ONCE IV 05/13/16 13:00 05/13/16 13:01 DC 05/13/16 12:53 Procedures/MDM Gradual headache resembling a migraine in a 35-year-old female who does occasionally get headaches. Very low concern for subarachnoid hemorrhage. Atraumatic. Headache was easily resolved in the emergency room with a migraine cocktail consisting of 2.5 mg of IV Benadryl, 10 mg of IV Reglan, 500 mL of normal saline. She is currently asymptomatic. I am going to discharge her with instructions to follow-up with her primary care doctor the next few days and return to the ER if she has any return of headache or concerning changes or neurological symptoms. Departure Diagnosis: Primary Impression: Acute headache Additional Impressions: Facial paresthesia Nausea Condition: Stable ASHLEIGH BASHIR DO May 13, 2016 13:48
== END 2016-05-13 15:09 | disposition home or self-care (01) ==
LOC: FTE 12:11
DX: R51 Headache (principal); R20.2 Paresthesia of skin; R11.0 Nausea
CPT/HCPCS: 96374; 96375; J1200; J2765; J7040; Z7502

== ENCOUNTER 2016-07-31 11:58 | Emergency (ER) | payer MEDICAID ==
[~2016-07-31] VITALS: Ht 154.9 cm; Wt 63.0 kg
[~2016-07-31 11:58] MED LIST changes: +NAPR-688 PO
[2016-07-31 12:00] VITALS: Ht 154.9 cm; Wt 63.0 kg
[2016-07-31] MEDS ORDERED: KETOROLAC 30 MG INJ IV STA (12:42)
[2016-07-31] MEDS ORDERED: ONDANSETRON 4 MG INJ IV STA (12:43)
[2016-07-31] MEDS ORDERED: SOD CHLORIDE 0.9% 1,000 ML IV ONE (13:00)
[2016-07-31 13:05] LABS: ADD SCAN DIFF NO
[2016-07-31 13:07] LABS: BASOPHILS % 0.2 % (0.0-2.0); EOSINOPHILS # 0.2 10^3/ul (0.0-0.5); EOSINOPHILS % 1.4 % (0.0-7.0); HEMATOCRIT 39.2 % (37.0-47.0); HEMOGLOBIN 13.4 g/dl (12.0-16.0); LYMPHOCYTES % 16.6 % (15.0-51.0); MEAN CORPUSCULAR HEMOGLOBIN 27.7 pg (29.0-33.0); MEAN CORPUSCULAR HGB CONC 34.2 g/dl (32.0-37.0); MEAN CORPUSCULAR VOLUME 81.2 fl (82.0-101.0); MEAN PLATELET VOLUME 10.9 fl (7.4-10.4); MONOCYTE # 0.7 10^3/ul (0.3-0.9); MONOCYTES % 5.5 % (0.0-11.0); NEUTROPHIL # 9.1 10^3/ul (1.6-7.5); NEUTROPHILS % 75.9 % (39.0-77.0); PLATELET COUNT 257 10^3/UL (140-415); RED BLOOD COUNT 4.83 10^6/ul (4.20-5.40); RED CELL DISTRIBUTION WIDTH 12.4 % (11.5-14.5); WHITE BLOOD COUNT 11.9 10^3/ul (4.8-10.8)
[2016-07-31 13:10] LABS: ADD UMIC YES; URINE BILIRUBIN (Dip) NEGATIVE (NEGATIVE); URINE BLOOD (Dip) NEGATIVE (NEGATIVE); URINE COLOR LT. YELLOW (YELLOW); URINE GLUCOSE (Dip) NEGATIVE (NEGATIVE); URINE KETONES (Dip) NEGATIVE (NEGATIVE); URINE LEUKOCYTE ESTERASE (Dip) 1+ (NEGATIVE); URINE NITRITE (Dip) NEGATIVE (NEGATIVE); URINE TOTAL PROTEIN (Dip) NEGATIVE (NEGATIVE); URINE UROBILINOGEN (Dip) 0.2 E.U./dL (0.1-1.0)
[2016-07-31 13:17] LABS: BACTERIA,URINE MODERATE
[2016-07-31 13:28] LABS: ALBUMIN/GLOBULIN RATIO 1.51; BILIRUBIN,INDIRECT 0.9 mg/dl (0-1.1); BILIRUBIN,TOTAL 0.9 mg/dl (0.2-1.3); CALCIUM 9.4 mg/dl (8.4-10.2); CREATININE 0.69 mg/dl (0.44-1.00); POTASSIUM 3.8 mmol/L (3.5-5.1); TOTAL PROTEIN 8.3 g/dl (6.1-8.1)
--- NOTE | 2016-07-31 13:40 | RADRPT ---
PROCEDURE: US Abdomen. CLINICAL INDICATION: abdominal pain TECHNIQUE: Multiple real-time images were acquired of the patient's right upper quadrant abdomen a nd retroperitoneum utilizing a high resolution transducer. COMPARISON: 02/24/2016 FINDINGS: The liver demonstrates normal echogenicity. The liver is normal in size and no focal solid lesions are seen. The liver measures 14.9 cm in length. The portal vein is patent with normal direction of f low. No intrahepatic biliary dilatation is seen. The patient is status post cholecystectomy. The common bile duct measures 5 mm in maximal dimension . The visualized portions of the pancreas are unremarkable. The tail of the pancreas is not seen. No free fluid is identified. The right kidney is normal in size, and demonstrate normal echogenicity and cortical thickness. The right kidney measures 10.4 cm in long dimension. There is no evidence of hydronephrosis. There are no kidney stones. The proximal aorta and IVC are normal in caliber. RPTAT: AA IMPRESSION: Unremarkable right upper quadrant abdominal ultrasound. Status post cholecystectomy. .Jun Ordonez MD, Date Time Electronically viewed and signed by .Jun Ordonez MD, on 07/31/2016 13:39 .S/
[2016-07-31] MEDS ORDERED: FAMOTIDINE 20 MG INJ IV ONE (14:30)
[2016-07-31] MEDS ORDERED: LIDOCAINE/MYLANTA 40 ML BTL PO ONE (14:30)
[2016-07-31] MEDS ORDERED: NITR-58 PO (14:47)
[2016-07-31] MEDS ORDERED: RANI150T9 PO (14:47)
[2016-07-31] MEDS ORDERED: OMEP40CA6 PO (14:47)
--- NOTE | 2016-07-31 15:08 | ERD ---
ER Documentation Chief Complaint Date/Time DATE: 07/31/16 TIME: 14:48 Chief Complaint Complains of diarrhea, nausea and vomiting x 3 days HPI 35-year-old female complaining of abdominal pain 3 days. Pain started at the right flank, is now generalized. The pain is constant and sharp she also had nausea, vomiting, diarrhea for last 3 days. 3 episode of vomiting today and 2 episodes of nausea. Able to drink water. She took naproxen yesterday for pain. Denies fever or chills. Denies cough or runny nose. Denies dysuria. ROS All systems reviewed and are negative except as per history of present illness. Medications Home Meds Active Scripts Ranitidine Hcl* (Zantac*) 150 Mg Tablet, 150 MG PO BID Y for EPIGASTRIC PAIN, # 30 TAB Prov:TORIE BERNAL. ROVING FRAME TENDER 07/31/16 Omeprazole* (Omeprazole*) 40 Mg Capsule.dr, 40 MG PO DAILY, #14 CAP Prov:TORIE BERNAL. ILSA 07/31/16 Nitrofurantoin Monohyd Macrocr* (Macrobid*) 100 Mg Capsr, 100 MG PO BID for 7 Days, CAP Prov:TORIE BERNAL. ILSA 07/31/16 Naproxen* (Naproxen*) 500 Mg Tablet, 500 MG PO BID Y for PAIN, #10 TAB Prov:ASHLEIGH BASHIR DO 05/13/16 Azithromycin* (Zithromax*) 500 Mg Tablet, 500 MG PO DAILY for 5 Days, TAB Prov:LAURA CUEVAS-C 03/28/16 Acetaminophen* (Tylenol*) 325 Mg Tablet, 2 TAB PO Q4 Y for PAIN AND OR ELEVATED TEMP, #30 TAB Prov:LAURA CUEVAS-[place] 03/28/16 Tramadol HCl (Tramadol HCl) 50 Mg Tablet, 50 MG PO Q4 Y for PAIN, #15 TAB Prov:DESIREE DUMONT MD 03/24/16 Lorazepam* (Ativan*) 0.5 Mg Tablet, 0.5 MG PO Q8, #10 TAB Prov:DESIREE DUMONT MD 03/24/16 Cyclobenzaprine Hcl* (Cyclobenzaprine Hcl*) 10 Mg Tablet, 10 MG PO TID, #15 TAB Prov:DESIREE DUMONT MD 03/24/16 Ibuprofen* (Motrin*) 600 Mg Tab, 600 MG PO Q6, #15 TAB Prov:DESIREE DUMONT MD 03/24/16 Cyclobenzaprine Hcl* (Cyclobenzaprine Hcl*) 10 Mg Tablet, 10 MG PO TID, #15 TAB Prov:PAVEL ROSSC 03/18/16 Naproxen* (Naprosyn*) 500 Mg Tablet, 500 MG PO BID Y for PAIN AND/OR INFLAMMATION, #30 TAB Prov:PAVEL ROSSC 03/18/16 Hydrocodone/Acetaminophen ([place] 10-325 Tablet) 1 Each Tablet, 1 TAB PO Q6H Y for PAIN, #7 TAB Prov:PAVEL ROSSC 03/18/16 Hydrocodone/Acetaminophen ([place] 10-325 Tablet) 1 Each Tablet, 1 TAB PO Q6H Y for PAIN, #20 TAB Prov:JAXON MORAN PA-C 02/24/16 Nitrofurantoin Monohyd Macrocr* (Macrobid*) 100 Mg Capsr, 100 MG PO BID for 7 Days, CAP Prov:JAXON MORAN PA-C 02/24/16 Hydrocodone/Acetaminophen ([place] 5-325 Tablet) 1 Each Tablet, 1 TAB PO Q6H Y for PAIN, #7 TAB Prov:NHI MOHAMUD PA-C 11/27/15 Famotidine* (Pepcid*) 20 Mg Tablet, 20 MG PO BID for 4 Days, #30 TAB Prov:NHI MOHAMUD PA-C 11/27/15 Metronidazole* (Flagyl*) 500 Mg Tablet, 500 MG PO Q8 for 7 Days, TAB Prov:CORONA BLUE NP 02/22/15 Hydrocodone Bit-Acetaminophen* ([place] [employer]*) 5-325 Mg Tab, 1 TAB PO Q6H Y for PAIN, # 20 TAB Prov:CORONA BLUE ROVING FRAME TENDER 02/22/15 Allergies Allergies: Coded Allergies: ciprofloxacin (Verified Allergy, Severe, NAUSEA, DYSPNEA, RIGIDITY OF HANDS, LEGS, 07/31/16) ampicillin (Verified Allergy, Unknown, RASH, 07/31/16) PMhx/Soc History of Surgery: Yes ( ) Anesthesia Reaction: No Hx Neurological Disorder: No Hx Respiratory Disorders: No Hx Cardiac Disorders: No Hx Psychiatric Problems: No Hx Miscellaneous Medical Probl: No (gallstones) Hx Alcohol Use: No Hx Substance Use: No Hx Tobacco Use: No Smoking Status: Never smoker Physical Exam Vitals Vital Signs Date Time Temp Pulse Resp B/P Pulse Ox O2 Delivery O2 Flow Rate FiO2 07/31/16 12:00 98.0 87 20 134/90 99 Physical Exam General: Well-developed, well-nourished, conscious and coherent, in no distress Skin: Warm and dry without rash, good texture and turgor Head: Normocephalic without evidence of trauma Eyes: Sclera and conjunctivae normal; pupils equal, round, and reactive to light; extraocular movements are intact Neck: Supple without meningismus or adenopathy. Carotids are equal. Trachea midline. No bruits or JVD Chest: Normal AP diameter. Good expansion without retractions. Nontender. Lungs are clear to auscultate bilaterally with good tidal volume Heart: Regular rate and rhythm. No murmur, rub, or gallops heard Abdomen: Soft, epigastric and right upper quad tenderness without masses, guarding, or rebound. Bowel sounds are active. No hepatosplenomegaly Back: Right CVA tenderness, without spinal tenderness. Pelvis: Nontender to palpation and stable to compression Extremities: Full range of motion. Good strength bilaterally. No clubbing, cyanosis, or edema. Peripheral pulses are intact. Sensation intact Neuro: Alert and oriented 4, GCS 15. Cranial nerves grossly intact. Motor and sensory exams nonfocal. Moves all extremities. Speech clear. Gait normal Result Diagram: 07/31/16 1300 07/31/16 1300 Results 24 hrs Laboratory Tests Test 07/31/16 13:00 White Blood Count 11.910^3/ul Red Blood Count 4.8310^6/ul Hemoglobin 13.4g/dl Hematocrit 39.2% Mean Corpuscular Volume 81.2fl Mean Corpuscular Hemoglobin 27.7pg Mean Corpuscular Hemoglobin Concent 34.2g/dl Red Cell Distribution Width 12.4% Platelet Count 64555^3/UL Mean Platelet Volume 10.9fl Neutrophils % 75.9% Lymphocytes % 16.6% Monocytes % 5.5% Eosinophils % 1.4% Basophils % 0.2% Nucleated Red Blood Cells % 0.0/100WBC Neutrophils # 9.110^3/ul Lymphocytes # 2.010^3/ul Monocytes # 0.710^3/ul Eosinophils # 0.210^3/ul Basophils # 0.010^3/ul Nucleated Red Blood Cells # 0.010^3/ul Urine Color LT. YELLOW Urine Clarity CLEAR Urine pH 6.0 Urine Specific [place] <=1.005 Urine Ketones NEGATIVE Urine Nitrite NEGATIVE Urine Bilirubin NEGATIVE Urine Urobilinogen 0.2 E.U./dL Urine Leukocyte Esterase 1+ Urine Microscopic RBC 2-5/HPF Urine Microscopic WBC 10-25/HPF Urine Epithelial Cells MANY Urine Bacteria MODERATE Urine Hemoglobin NEGATIVE Urine Glucose NEGATIVE% Urine Total Protein NEGATIVE Sodium Level 143mmol/L Potassium Level 3.8mmol/L Chloride Level 107mmol/L Carbon Dioxide Level 25mmol/L Anion Gap 15 Blood Urea Nitrogen 13mg/dl Creatinine 0.69mg/dl Glucose Level 99mg/dl Calcium Level 9.4mg/dl Total Bilirubin 0.9mg/dl Direct Bilirubin 0.00mg/dl Indirect Bilirubin 0.9mg/dl Aspartate Amino Transf (AST/SGOT) 23IU/L Alanine Aminotransferase (ALT/SGPT) 28IU/L Alkaline Phosphatase 65IU/L Total Protein 8.3g/dl Albumin 5.0g/dl Globulin 3.30g/dl Albumin/Globulin Ratio 1.51 Lipase 58U/L Current Medications Medications (Trade) Dose Ordered Sig/Lalito Route PRN Reason Start Time Stop Time Status Last Admin Dose Admin Ketorolac Tromethamine (Toradol) 30 mg ONCE STAT IV 07/31/16 12:42 07/31/16 12:44 DC 07/31/16 13:02 Ondansetron HCl 4 mg 4 mg ONCE STAT IV 07/31/16 12:43 07/31/16 12:44 DC 07/31/16 13:02 Sodium Chloride (NS) 1,000 ml @ 1,000 mls/hr Q1H ONCE IV 07/31/16 13:00 07/31/16 13:59 DC 07/31/16 13:02 Miscellaneous Medication (Gi Cocktail (2)) 40 ml ONCE ONCE PO 07/31/16 14:30 07/31/16 14:31 DC 07/31/16 14:23 Famotidine (Pepcid Iv) 20 mg ONCE ONCE IV 07/31/16 14:30 07/31/16 14:31 DC 07/31/16 14:23 PROCEDURE: US Abdomen. CLINICAL INDICATION: abdominal pain TECHNIQUE: Multiple real-time images were acquired of the patient's right upper quadrant abdomen and retroperitoneum utilizing a high resolution transducer. COMPARISON: 02/24/2016 FINDINGS: The liver demonstrates normal echogenicity. The liver is normal in size and no focal solid lesions are seen. The liver measures 14.9 cm in length. The portal vein is patent with normal direction of flow. No intrahepatic biliary dilatation is seen. The patient is status post cholecystectomy. The common bile duct measures 5 mm in maximal dimension. The visualized portions of the pancreas are unremarkable. The tail of the pancreas is not seen. No free fluid is identified. The right kidney is normal in size, and demonstrate normal echogenicity and cortical thickness. The right kidney measures 10.4 cm in long dimension. There is no evidence of hydronephrosis. There are no kidney stones. The proximal aorta and IVC are normal in caliber. RPTAT: AA IMPRESSION: Unremarkable right upper quadrant abdominal ultrasound. Status post cholecystectomy. .Jun Ordonez MD, MD Date Time Electronically viewed and signed by .Jun Ordonez MD, MD on 07/31/2016 13: 39 .S/ CC: TORIE BERNAL ROVING FRAME TENDER Procedures/MDM Patient given Toradol IV, Zofran IV, Pepcid IV, 1 L normal saline, GI cocktail in the ED. Patient reports improvement pain after medications. EKG: Normal sinus rhythm, normal axis, rate 80. No ST segment elevation or depression. No ectopic beats. No QT prolongation. No other EKG abnormalities. EKG read by Dr. Dumont. CBC: no e/o of systemic infection or severe anemia CMP: no e/o severe acidosis, alkalosis, renal failure, diabetic ketoacidosis, liver disease Lipase: no e/o pancreatitis Urine: 1+ leukocyte, negative nitrite, many bacteria. Gallbladder ultrasound: Status post cholecystectomy. No evidence of right hydronephrosis or urolithiasis. Patient appears to have UTI. She is afebrile, I doubt pyelonephritis. Patient has epigastric tenderness on palpation. I have low suspicion for acute cholecystitis, appendicitis, pancreatitis, no other acute abdomen. I also have low suspicion for acute coronary syndrome. Patient reports improvement of epigastric pain after GI cocktail. Her vomiting diarrhea is likely due to a viral cause. Patient appears well, stable for discharge and outpatient management. Medical decision making shared with patient and family. Education provided to patient and family. Patient and family expressed understanding of the plan. Medications on discharge: Macrobid, omeprazole, ranitidine. Follow-up: Primary care provider in 2-3 days or return to ED if worse. Departure Diagnosis: Primary Impression: UTI (urinary tract infection) Urinary tract infection type: acute cystitis Hematuria presence: without hematuria Qualified Code: N30.00 - Acute cystitis without hematuria Additional Impressions: Abdominal pain Abdominal location: epigastric Qualified Code: R10.13 - Epigastric pain Vomiting and diarrhea Condition: Stable Patient Instructions: Understanding Urinary Tract Infections (UTIs), Epigastric Pain (Uncertain Cause) [facility] Usted se taveras hecho un examen mdico de control que le indica que no est en shadi condicin que requiera tratamiento urgente en el Departamento de Emergencia. Un estudio ms profundo y el tratamiento de harmon condicin pueden esperar sin ningn riesgo hasta que usted sea atendida/o en el consultorio de harmon mdico o shadi cl frankie. Es responsabilidad suya arreglar shadi selvin para el seguimiento del aminta. MANEJO DE CONDICIONES NO URGENTES EN EL FUTURO 1) Si usted tiene un mdico de atencin primaria: Usted debera llamar a harmon mdico de atencin primaria antes de venir al departamento de emergencia. Despus de las horas de consultorio, harmon doctor o harmon asociado/a est disponible por telfono. El mdico o enfermero de flora en el servicio telefnico puede asesorarle por juan medio para atender el problema, o aminta contrario se puede programar shadi selvin. 2) Si usted no tiene un mdico de atencin primaria: Llame al mdico o clnica de referencia que aparece abajo keily las horas de consultorio para hacer shadi selvin para que le vean. CLINICAS: [facility] [phone] [id number] [facility] [id number] [facility] [phone] [address] [facility]. [place] [id number] [phone] [facility]. [facility] [phone] [address] [facility]. [phone] [address] Additional Instructions: Llame al doctor MAANA y uri shadi SELVIN PARA DENTRO DE 2-3 YI.Dgale a la secretaria que nosotros le instruimos hacer esta selvin.Avise o llame si harmon condicin se empeora antes de la selvin. Regresa aqui si peor o no mejor. TORIE BERNAL. ILSA Jul 31, 2016 14:58
[2016-07-31 15:16] VITALS: TEMP 97.2
== END 2016-07-31 15:17 | disposition home or self-care (01) ==
LOC: FTE 11:58
DX: N30.00 Acute cystitis without hematuria (principal); R10.13 Epigastric pain; R11.10 Vomiting, unspecified; R10.2 Pelvic and perineal pain
CPT/HCPCS: 36415; 76705; 80053; 81001; 83690; 85025; 87086; 93005; 96374; 96375; J1885; J2405; J7030; Z7502; Z7610

== ENCOUNTER 2016-12-24 16:55 | Emergency (ER) | payer MEDICAID ==
[~2016-12-24] VITALS: Ht 157.5 cm; Wt 63.3 kg
[~2016-12-24 16:55] MED LIST changes: -FAMO-18 PO; +FAMO-96 PO; +OMEP40CA6 PO; +RANI150T9 PO
[2016-12-24 16:57] VITALS: Ht 157.5 cm; Wt 63.3 kg
[2016-12-24] MEDS ORDERED: KETOROLAC 30 MG INJ IV STA (17:28)
[2016-12-24] MEDS ORDERED: ONDANSETRON 4 MG INJ IV STA (17:28)
[2016-12-24] MEDS ORDERED: SOD CHLORIDE 0.9% 1,000 ML IV STA (17:28)
[2016-12-24] MEDS ORDERED: TRAM50TA2 PO (20:07)
[2016-12-24] MEDS ORDERED: IBUP-1542 PO (20:07)
--- NOTE | 2016-12-24 20:12 | ERD ---
ER Documentation Chief Complaint Chief Complaint Complains of right flank pain x 3 days HPI 36-year-old female presents with 3 day history of right flank pain and right low back pain. She feels a lump in her right lower back patient denies any history of trauma or inciting events. She has any fevers, vomiting, shortness breath or chest pain. Denies any dysuria or urinary complaints. ROS All systems reviewed and are negative except as per history of present illness. Medications Home Meds Active Scripts Tramadol HCl (Tramadol HCl) 50 Mg Tablet, 50 MG PO Q4 Y for PAIN, #20 TAB Prov:DESIREE NARVAEZ MD 12/24/16 Ibuprofen* (Motrin*) 600 Mg Tab, 600 MG PO Q6, #20 TAB Prov:DESIREE NARVAEZ MD 12/24/16 Naproxen* (Naprosyn*) 500 Mg Tablet, 500 MG PO BID Y for PAIN AND/OR INFLAMMATION, #30 TAB Prov:JOSE GUADALUPE LAN PA-C 10/16/16 Nitrofurantoin Monohyd Macrocr* (Macrobid*) 100 Mg Capsr, 100 MG PO BID for 7 Days, #14 CAP Prov:JOSE GUADALUPE LAN PA-C 10/16/16 Ranitidine Hcl* (Zantac*) 150 Mg Tablet, 150 MG PO BID Y for EPIGASTRIC PAIN, # 30 TAB Prov:TORIE BERNAL NP 07/31/16 Omeprazole* (Omeprazole*) 40 Mg Capsule.dr, 40 MG PO DAILY, #14 CAP Prov:TORIE BERNAL NP 07/31/16 Nitrofurantoin Monohyd Macrocr* (Macrobid*) 100 Mg Capsr, 100 MG PO BID for 7 Days, CAP Prov:TORIE BERNAL NP 07/31/16 Naproxen* (Naproxen*) 500 Mg Tablet, 500 MG PO BID Y for PAIN, #10 TAB Prov:ASHLEIGH BASHIR DO 05/13/16 Azithromycin* (Zithromax*) 500 Mg Tablet, 500 MG PO DAILY for 5 Days, TAB Prov:LAURA UCEVAS PA-C 03/28/16 Acetaminophen* (Tylenol*) 325 Mg Tablet, 2 TAB PO Q4 Y for PAIN AND OR ELEVATED TEMP, #30 TAB Prov:LAURA CUEVAS PA-C 03/28/16 Tramadol HCl (Tramadol HCl) 50 Mg Tablet, 50 MG PO Q4 Y for PAIN, #15 TAB Prov:DESIREE NARVAEZ MD 03/24/16 Lorazepam* (Ativan*) 0.5 Mg Tablet, 0.5 MG PO Q8, #10 TAB Prov:DESIREE NARVAEZ MD 03/24/16 Cyclobenzaprine Hcl* (Cyclobenzaprine Hcl*) 10 Mg Tablet, 10 MG PO TID, #15 TAB Prov:DESIREE NARVAEZ MD 03/24/16 Ibuprofen* (Motrin*) 600 Mg Tab, 600 MG PO Q6, #15 TAB Prov:DESIREE NARVAEZ MD 03/24/16 Cyclobenzaprine Hcl* (Cyclobenzaprine Hcl*) 10 Mg Tablet, 10 MG PO TID, #15 TAB Prov:PAVEL ROSS PA-C 03/18/16 Naproxen* (Naprosyn*) 500 Mg Tablet, 500 MG PO BID Y for PAIN AND/OR INFLAMMATION, #30 TAB Prov:PAVEL ROSS PA-C 03/18/16 Hydrocodone/Acetaminophen ([place] 10-325 Tablet) 1 Each Tablet, 1 TAB PO Q6H Y for PAIN, #7 TAB Prov:PAVEL ROSS PA-C 03/18/16 Hydrocodone/Acetaminophen ([place] 10-325 Tablet) 1 Each Tablet, 1 TAB PO Q6H Y for PAIN, #20 TAB Prov:JAXON MORAN PA-C 02/24/16 Nitrofurantoin Monohyd Macrocr* (Macrobid*) 100 Mg Capsr, 100 MG PO BID for 7 Days, CAP Prov:JAXON MORAN PA-C 02/24/16 Hydrocodone/Acetaminophen ([place] 5-325 Tablet) 1 Each Tablet, 1 TAB PO Q6H Y for PAIN, #7 TAB Prov:NHI MOHAMUD PA-C 11/27/15 Famotidine* (Pepcid*) 20 Mg Tablet, 20 MG PO BID for 4 Days, #30 TAB Prov:NHI MOHAMUD PA-C 10/7/16 Metronidazole* (Flagyl*) 500 Mg Tablet, 500 MG PO Q8 for 7 Days, TAB Prov:MACCORONA MARY DISPATCH MANAGER 02/22/15 Hydrocodone Bit-Acetaminophen* ([place]*) 5-325 Mg Tab, 1 TAB PO Q6H Y for PAIN, # 20 TAB Prov:CORONA BLUE DISPATCH MANAGER 02/22/15 Allergies Allergies: Coded Allergies: ciprofloxacin (Verified Allergy, Severe, NAUSEA, DYSPNEA, RIGIDITY OF HANDS, LEGS, 12/24/16) ampicillin (Verified Allergy, Unknown, RASH, 12/24/16) PMhx/Soc History of Surgery: Yes (, appendectomy) Anesthesia Reaction: No Hx Neurological Disorder: No Hx Respiratory Disorders: No Hx Cardiac Disorders: No Hx Psychiatric Problems: No Hx Miscellaneous Medical Probl: No (gallstones) Hx Alcohol Use: No Hx Substance Use: No Hx Tobacco Use: No Smoking Status: Never smoker Physical Exam Vitals Vital Signs Date Time Temp Pulse Resp B/P Pulse Ox O2 Delivery O2 Flow Rate FiO2 12/24/16 16:57 99.4 90 20 136/85 99 Physical Exam Const: [] Alert, [id number]. Head: Atraumatic Eyes: Normal Conjunctiva ENT: Normal External Ears, Nose and Mouth. Neck: Full range of motion..~ No meningismus. Resp: Clear to auscultation bilaterally Cardio: Regular rate and rhythm, no murmurs Abd: Soft, non tender, non distended. Normal bowel sounds. Skin: No petechiae or rashes Back: There is some right L4-5 area with spasm. Possible mild CVA tenderness and right mid abdominal tenderness. No rebound. Ext: No cyanosis, or edema Neur: Awake and alert Psych: Normal Mood and Affect Result Diagram: 12/24/16174912/24/161749 Results 24 hrs Laboratory Tests Test 12/24/16 17:36 12/24/16 17:50 Urine Color STRAW Urine Clarity CLEAR Urine pH 8.0 Urine Specific [place] 1.013 Urine Ketones NEGATIVEmg/dL Urine Nitrite NEGATIVEmg/dL Urine Bilirubin NEGATIVEmg/dL Urine Urobilinogen NEGATIVEmg/dL Urine Leukocyte Esterase NEGATIVELeu/ul Urine Hemoglobin NEGATIVEmg/dL Urine Glucose NEGATIVEmg/dL Urine Total Protein NEGATIVEmg/dl White Blood Count 11.310^3/ul Red Blood Count 4.5910^6/ul Hemoglobin 13.2g/dl Hematocrit 37.8% Mean Corpuscular Volume 82.4fl Mean Corpuscular Hemoglobin 28.8pg Mean Corpuscular Hemoglobin Concent 34.9g/dl Red Cell Distribution Width 12.4% Platelet Count 96827^3/UL Mean Platelet Volume 10.8fl Neutrophils % 63.5% Lymphocytes % 27.1% Monocytes % 5.2% Eosinophils % 3.2% Basophils % 0.4% Nucleated Red Blood Cells % 0.0/100WBC Neutrophils # 7.110^3/ul Lymphocytes # 3.110^3/ul Monocytes # 0.610^3/ul Eosinophils # 0.410^3/ul Basophils # 0.110^3/ul Nucleated Red Blood Cells # 0.010^3/ul Sodium Level 142mmol/L Potassium Level 3.8mmol/L Chloride Level 102mmol/L Carbon Dioxide Level 26mmol/L Anion Gap 18 Blood Urea Nitrogen 13mg/dl Creatinine 0.81mg/dl Glucose Level 103mg/dl Calcium Level 9.3mg/dl Total Bilirubin 0.8mg/dl Direct Bilirubin 0.00mg/dl Indirect Bilirubin 0.8mg/dl Aspartate Amino Transf (AST/SGOT) 34IU/L Alanine Aminotransferase (ALT/SGPT) 39IU/L Alkaline Phosphatase 71IU/L Total Protein 8.4g/dl Albumin 4.7g/dl Globulin 3.70g/dl Albumin/Globulin Ratio 1.27 Lipase 133U/L Current Medications Medications (Trade) Dose Ordered Sig/Lalito Route PRN Reason Start Time Stop Time Status Last Admin Dose Admin Sodium Chloride (NS) 1,000 ml @ 1,000 mls/hr Q1H STAT IV 12/24/16 17:28 12/24/16 18:27 DC 12/24/16 17:49 Ondansetron HCl (Zofran Inj) 4 mg ONCE STAT IV 12/24/16 17:28 12/24/16 17:30 DC 12/24/16 17:48 Ketorolac Tromethamine (Toradol) 30 mg ONCE STAT IV 12/24/16 17:28 12/24/16 17:30 DC 12/24/16 17:49 Procedures/MDM Urine is negative. CBC shows white blood cell count 11. CMP shows no acute abnormalities. Patient was given Zofran 4 mg IV and Toradol 30 mg IV. She is negative. His presents with low back pain with signs of musculoskeletal strain but also has flank tenderness and right mid abdominal tenderness with nausea and a few episodes of vomiting. CT abdomen pelvis noncontrast pending at time of dictation. This will be signed out to MID level [place] and supervising ER physician for further evaluation and treatment which will depend on pending studies. Patient currently has no signs or symptoms of acute abdomen, sepsis, UTI, signs of pneumonia. Patient has history of appendectomy. Departure Diagnosis: Primary Impression: Low back pain Chronicity: acute Back pain laterality: right Sciatica presence: without sciatica Qualified Code: M54.5 - Acute right-sided low back pain without sciatica Additional Impression: Flank pain Condition: Stable Patient Instructions: Self-Care for Low Back Pain, Flank Pain, Uncertain Cause Additional Instructions: Cheque otro vez con harmon doctor primario en el proximo cleary or regresa para mas o nueva simptomas. DESIREE NARVAEZ MD Dec 24, 2016 20:12
--- NOTE | 2016-12-24 20:12 | ERD ---
ER Documentation Chief Complaint Chief Complaint Complains of right flank pain x 3 days HPI 36-year-old female presents with 3 day history of right flank pain and right low back pain. She feels a lump in her right lower back patient denies any history of trauma or inciting events. She has any fevers, vomiting, shortness breath or chest pain. Denies any dysuria or urinary complaints. ROS All systems reviewed and are negative except as per history of present illness. Medications Home Meds Active Scripts Tramadol HCl (Tramadol HCl) 50 Mg Tablet, 50 MG PO Q4 Y for PAIN, #20 TAB Prov:DESIREE NARVAEZ MD 12/24/16 Ibuprofen* (Motrin*) 600 Mg Tab, 600 MG PO Q6, #20 TAB Prov:DESIREE NARVAEZ MD 12/24/16 Naproxen* (Naprosyn*) 500 Mg Tablet, 500 MG PO BID Y for PAIN AND/OR INFLAMMATION, #30 TAB Prov:JOSE GUADALUPE LAN PA-C 10/16/16 Nitrofurantoin Monohyd Macrocr* (Macrobid*) 100 Mg Capsr, 100 MG PO BID for 7 Days, #14 CAP Prov:JOSE GUADALUPE LAN PA-C 10/16/16 Ranitidine Hcl* (Zantac*) 150 Mg Tablet, 150 MG PO BID Y for EPIGASTRIC PAIN, # 30 TAB Prov:TORIE BERNAL NP 07/31/16 Omeprazole* (Omeprazole*) 40 Mg Capsule.dr, 40 MG PO DAILY, #14 CAP Prov:TORIE BERNAL NP 07/31/16 Nitrofurantoin Monohyd Macrocr* (Macrobid*) 100 Mg Capsr, 100 MG PO BID for 7 Days, CAP Prov:TORIE BERNAL NP 07/31/16 Naproxen* (Naproxen*) 500 Mg Tablet, 500 MG PO BID Y for PAIN, #10 TAB Prov:ASHLEIGH BASHIR DO 05/13/16 Azithromycin* (Zithromax*) 500 Mg Tablet, 500 MG PO DAILY for 5 Days, TAB Prov:LAURA CUEVAS PA-C 03/28/16 Acetaminophen* (Tylenol*) 325 Mg Tablet, 2 TAB PO Q4 Y for PAIN AND OR ELEVATED TEMP, #30 TAB Prov:LAURA CUEVAS PA-C 03/28/16 Tramadol HCl (Tramadol HCl) 50 Mg Tablet, 50 MG PO Q4 Y for PAIN, #15 TAB Prov:DESIREE NARVAEZ MD 03/24/16 Lorazepam* (Ativan*) 0.5 Mg Tablet, 0.5 MG PO Q8, #10 TAB Prov:DESIREE NARVAEZ MD 03/24/16 Cyclobenzaprine Hcl* (Cyclobenzaprine Hcl*) 10 Mg Tablet, 10 MG PO TID, #15 TAB Prov:DESIREE NARVAEZ MD 03/24/16 Ibuprofen* (Motrin*) 600 Mg Tab, 600 MG PO Q6, #15 TAB Prov:DESIREE NARVAEZ MD 03/24/16 Cyclobenzaprine Hcl* (Cyclobenzaprine Hcl*) 10 Mg Tablet, 10 MG PO TID, #15 TAB Prov:PAVEL ROSS PA-C 03/18/16 Naproxen* (Naprosyn*) 500 Mg Tablet, 500 MG PO BID Y for PAIN AND/OR INFLAMMATION, #30 TAB Prov:PAVEL ROSS PA-C 03/18/16 Hydrocodone/Acetaminophen ([place] 10-325 Tablet) 1 Each Tablet, 1 TAB PO Q6H Y for PAIN, #7 TAB Prov:PAVEL ROSS PA-C 03/18/16 Hydrocodone/Acetaminophen ([place] 10-325 Tablet) 1 Each Tablet, 1 TAB PO Q6H Y for PAIN, #20 TAB Prov:JAXON MORAN PA-C 02/24/16 Nitrofurantoin Monohyd Macrocr* (Macrobid*) 100 Mg Capsr, 100 MG PO BID for 7 Days, CAP Prov:JAXON MORAN PA-C 02/24/16 Hydrocodone/Acetaminophen ([place] 5-325 Tablet) 1 Each Tablet, 1 TAB PO Q6H Y for PAIN, #7 TAB Prov:NHI MOHAMUD PA-C 11/27/15 Famotidine* (Pepcid*) 20 Mg Tablet, 20 MG PO BID for 4 Days, #30 TAB Prov:NHI MOHAMUD PA-C 10/7/16 Metronidazole* (Flagyl*) 500 Mg Tablet, 500 MG PO Q8 for 7 Days, TAB Prov:MACCROONA MARY REPRESENTATIVE 02/22/15 Hydrocodone Bit-Acetaminophen* ([place]*) 5-325 Mg Tab, 1 TAB PO Q6H Y for PAIN, # 20 TAB Prov:CORONA BLUE REPRESENTATIVE 02/22/15 Allergies Allergies: Coded Allergies: ciprofloxacin (Verified Allergy, Severe, NAUSEA, DYSPNEA, RIGIDITY OF HANDS, LEGS, 12/24/16) ampicillin (Verified Allergy, Unknown, RASH, 12/24/16) PMhx/Soc History of Surgery: Yes (, appendectomy) Anesthesia Reaction: No Hx Neurological Disorder: No Hx Respiratory Disorders: No Hx Cardiac Disorders: No Hx Psychiatric Problems: No Hx Miscellaneous Medical Probl: No (gallstones) Hx Alcohol Use: No Hx Substance Use: No Hx Tobacco Use: No Smoking Status: Never smoker Physical Exam Vitals Vital Signs Date Time Temp Pulse Resp B/P Pulse Ox O2 Delivery O2 Flow Rate FiO2 12/24/16 16:57 99.4 90 20 136/85 99 Physical Exam Const: [] Alert, [id number]. Head: Atraumatic Eyes: Normal Conjunctiva ENT: Normal External Ears, Nose and Mouth. Neck: Full range of motion..~ No meningismus. Resp: Clear to auscultation bilaterally Cardio: Regular rate and rhythm, no murmurs Abd: Soft, non tender, non distended. Normal bowel sounds. Skin: No petechiae or rashes Back: There is some right L4-5 area with spasm. Possible mild CVA tenderness and right mid abdominal tenderness. No rebound. Ext: No cyanosis, or edema Neur: Awake and alert Psych: Normal Mood and Affect Result Diagram: 12/24/16174912/24/161749 Results 24 hrs Laboratory Tests Test 12/24/16 17:36 12/24/16 17:50 Urine Color STRAW Urine Clarity CLEAR Urine pH 8.0 Urine Specific [place] 1.013 Urine Ketones NEGATIVEmg/dL Urine Nitrite NEGATIVEmg/dL Urine Bilirubin NEGATIVEmg/dL Urine Urobilinogen NEGATIVEmg/dL Urine Leukocyte Esterase NEGATIVELeu/ul Urine Hemoglobin NEGATIVEmg/dL Urine Glucose NEGATIVEmg/dL Urine Total Protein NEGATIVEmg/dl White Blood Count 11.310^3/ul Red Blood Count 4.5910^6/ul Hemoglobin 13.2g/dl Hematocrit 37.8% Mean Corpuscular Volume 82.4fl Mean Corpuscular Hemoglobin 28.8pg Mean Corpuscular Hemoglobin Concent 34.9g/dl Red Cell Distribution Width 12.4% Platelet Count 99255^3/UL Mean Platelet Volume 10.8fl Neutrophils % 63.5% Lymphocytes % 27.1% Monocytes % 5.2% Eosinophils % 3.2% Basophils % 0.4% Nucleated Red Blood Cells % 0.0/100WBC Neutrophils # 7.110^3/ul Lymphocytes # 3.110^3/ul Monocytes # 0.610^3/ul Eosinophils # 0.410^3/ul Basophils # 0.110^3/ul Nucleated Red Blood Cells # 0.010^3/ul Sodium Level 142mmol/L Potassium Level 3.8mmol/L Chloride Level 102mmol/L Carbon Dioxide Level 26mmol/L Anion Gap 18 Blood Urea Nitrogen 13mg/dl Creatinine 0.81mg/dl Glucose Level 103mg/dl Calcium Level 9.3mg/dl Total Bilirubin 0.8mg/dl Direct Bilirubin 0.00mg/dl Indirect Bilirubin 0.8mg/dl Aspartate Amino Transf (AST/SGOT) 34IU/L Alanine Aminotransferase (ALT/SGPT) 39IU/L Alkaline Phosphatase 71IU/L Total Protein 8.4g/dl Albumin 4.7g/dl Globulin 3.70g/dl Albumin/Globulin Ratio 1.27 Lipase 133U/L Current Medications Medications (Trade) Dose Ordered Sig/Lalito Route PRN Reason Start Time Stop Time Status Last Admin Dose Admin Sodium Chloride (NS) 1,000 ml @ 1,000 mls/hr Q1H STAT IV 12/24/16 17:28 12/24/16 18:27 DC 12/24/16 17:49 Ondansetron HCl (Zofran Inj) 4 mg ONCE STAT IV 12/24/16 17:28 12/24/16 17:30 DC 12/24/16 17:48 Ketorolac Tromethamine (Toradol) 30 mg ONCE STAT IV 12/24/16 17:28 12/24/16 17:30 DC 12/24/16 17:49 Procedures/MDM Urine is negative. CBC shows white blood cell count 11. CMP shows no acute abnormalities. Patient was given Zofran 4 mg IV and Toradol 30 mg IV. She is negative. His presents with low back pain with signs of musculoskeletal strain but also has flank tenderness and right mid abdominal tenderness with nausea and a few episodes of vomiting. CT abdomen pelvis noncontrast pending at time of dictation. This will be signed out to MID level [place] and supervising ER physician for further evaluation and treatment which will depend on pending studies. Patient currently has no signs or symptoms of acute abdomen, sepsis, UTI, signs of pneumonia. Patient has history of appendectomy. Departure Diagnosis: Primary Impression: Low back pain Chronicity: acute Back pain laterality: right Sciatica presence: without sciatica Qualified Code: M54.5 - Acute right-sided low back pain without sciatica Additional Impression: Flank pain Condition: Stable Patient Instructions: Self-Care for Low Back Pain, Flank Pain, Uncertain Cause Additional Instructions: Cheque otro vez con harmon doctor primario en el proximo cleary or regresa para mas o nueva simptomas. DESIREE NARVAEZ MD Dec 24, 2016 20:12
--- NOTE | 2016-12-24 20:12 | ERD ---
ER Documentation Chief Complaint Chief Complaint Complains of right flank pain x 3 days HPI 36-year-old female presents with 3 day history of right flank pain and right low back pain. She feels a lump in her right lower back patient denies any history of trauma or inciting events. She has any fevers, vomiting, shortness breath or chest pain. Denies any dysuria or urinary complaints. ROS All systems reviewed and are negative except as per history of present illness. Medications Home Meds Active Scripts Tramadol HCl (Tramadol HCl) 50 Mg Tablet, 50 MG PO Q4 Y for PAIN, #20 TAB Prov:DESIREE NARVAEZ MD 12/24/16 Ibuprofen* (Motrin*) 600 Mg Tab, 600 MG PO Q6, #20 TAB Prov:DESIREE NARVAEZ MD 12/24/16 Naproxen* (Naprosyn*) 500 Mg Tablet, 500 MG PO BID Y for PAIN AND/OR INFLAMMATION, #30 TAB Prov:JOSE GUADALUPE LAN PA-C 10/16/16 Nitrofurantoin Monohyd Macrocr* (Macrobid*) 100 Mg Capsr, 100 MG PO BID for 7 Days, #14 CAP Prov:JOSE GUADALUPE LAN PA-C 10/16/16 Ranitidine Hcl* (Zantac*) 150 Mg Tablet, 150 MG PO BID Y for EPIGASTRIC PAIN, # 30 TAB Prov:TORIE BERNAL NP 07/31/16 Omeprazole* (Omeprazole*) 40 Mg Capsule.dr, 40 MG PO DAILY, #14 CAP Prov:TORIE BERNAL NP 07/31/16 Nitrofurantoin Monohyd Macrocr* (Macrobid*) 100 Mg Capsr, 100 MG PO BID for 7 Days, CAP Prov:TORIE BERNAL NP 07/31/16 Naproxen* (Naproxen*) 500 Mg Tablet, 500 MG PO BID Y for PAIN, #10 TAB Prov:ASHLEIGH BASHIR DO 05/13/16 Azithromycin* (Zithromax*) 500 Mg Tablet, 500 MG PO DAILY for 5 Days, TAB Prov:LAURA CUEVAS PA-C 03/28/16 Acetaminophen* (Tylenol*) 325 Mg Tablet, 2 TAB PO Q4 Y for PAIN AND OR ELEVATED TEMP, #30 TAB Prov:LAURA CUEVAS PA-C 03/28/16 Tramadol HCl (Tramadol HCl) 50 Mg Tablet, 50 MG PO Q4 Y for PAIN, #15 TAB Prov:DESIREE NARVAEZ MD 03/24/16 Lorazepam* (Ativan*) 0.5 Mg Tablet, 0.5 MG PO Q8, #10 TAB Prov:DESIREE NARVAEZ MD 03/24/16 Cyclobenzaprine Hcl* (Cyclobenzaprine Hcl*) 10 Mg Tablet, 10 MG PO TID, #15 TAB Prov:DESIREE NARVAEZ MD 03/24/16 Ibuprofen* (Motrin*) 600 Mg Tab, 600 MG PO Q6, #15 TAB Prov:DESIREE NARVAEZ MD 03/24/16 Cyclobenzaprine Hcl* (Cyclobenzaprine Hcl*) 10 Mg Tablet, 10 MG PO TID, #15 TAB Prov:PAVEL ROSS PA-C 03/18/16 Naproxen* (Naprosyn*) 500 Mg Tablet, 500 MG PO BID Y for PAIN AND/OR INFLAMMATION, #30 TAB Prov:PAVEL ROSS PA-C 03/18/16 Hydrocodone/Acetaminophen ([place] 10-325 Tablet) 1 Each Tablet, 1 TAB PO Q6H Y for PAIN, #7 TAB Prov:PAVEL ROSS PA-C 03/18/16 Hydrocodone/Acetaminophen ([place] 10-325 Tablet) 1 Each Tablet, 1 TAB PO Q6H Y for PAIN, #20 TAB Prov:JAXON MORAN PA-C 02/24/16 Nitrofurantoin Monohyd Macrocr* (Macrobid*) 100 Mg Capsr, 100 MG PO BID for 7 Days, CAP Prov:JAXON MORAN PA-C 02/24/16 Hydrocodone/Acetaminophen ([place] 5-325 Tablet) 1 Each Tablet, 1 TAB PO Q6H Y for PAIN, #7 TAB Prov:NHI MOHAMUD PA-C 11/27/15 Famotidine* (Pepcid*) 20 Mg Tablet, 20 MG PO BID for 4 Days, #30 TAB Prov:NHI MOHAMUD PA-C 10/7/16 Metronidazole* (Flagyl*) 500 Mg Tablet, 500 MG PO Q8 for 7 Days, TAB Prov:MACCORONA MARY HEAD PORTER 02/22/15 Hydrocodone Bit-Acetaminophen* ([place]*) 5-325 Mg Tab, 1 TAB PO Q6H Y for PAIN, # 20 TAB Prov:CORONA BLUE HEAD PORTER 02/22/15 Allergies Allergies: Coded Allergies: ciprofloxacin (Verified Allergy, Severe, NAUSEA, DYSPNEA, RIGIDITY OF HANDS, LEGS, 12/24/16) ampicillin (Verified Allergy, Unknown, RASH, 12/24/16) PMhx/Soc History of Surgery: Yes (, appendectomy) Anesthesia Reaction: No Hx Neurological Disorder: No Hx Respiratory Disorders: No Hx Cardiac Disorders: No Hx Psychiatric Problems: No Hx Miscellaneous Medical Probl: No (gallstones) Hx Alcohol Use: No Hx Substance Use: No Hx Tobacco Use: No Smoking Status: Never smoker Physical Exam Vitals Vital Signs Date Time Temp Pulse Resp B/P Pulse Ox O2 Delivery O2 Flow Rate FiO2 12/24/16 16:57 99.4 90 20 136/85 99 Physical Exam Const: [] Alert, [id number]. Head: Atraumatic Eyes: Normal Conjunctiva ENT: Normal External Ears, Nose and Mouth. Neck: Full range of motion..~ No meningismus. Resp: Clear to auscultation bilaterally Cardio: Regular rate and rhythm, no murmurs Abd: Soft, non tender, non distended. Normal bowel sounds. Skin: No petechiae or rashes Back: There is some right L4-5 area with spasm. Possible mild CVA tenderness and right mid abdominal tenderness. No rebound. Ext: No cyanosis, or edema Neur: Awake and alert Psych: Normal Mood and Affect Result Diagram: 12/24/16174912/24/161749 Results 24 hrs Laboratory Tests Test 12/24/16 17:36 12/24/16 17:50 Urine Color STRAW Urine Clarity CLEAR Urine pH 8.0 Urine Specific [place] 1.013 Urine Ketones NEGATIVEmg/dL Urine Nitrite NEGATIVEmg/dL Urine Bilirubin NEGATIVEmg/dL Urine Urobilinogen NEGATIVEmg/dL Urine Leukocyte Esterase NEGATIVELeu/ul Urine Hemoglobin NEGATIVEmg/dL Urine Glucose NEGATIVEmg/dL Urine Total Protein NEGATIVEmg/dl White Blood Count 11.310^3/ul Red Blood Count 4.5910^6/ul Hemoglobin 13.2g/dl Hematocrit 37.8% Mean Corpuscular Volume 82.4fl Mean Corpuscular Hemoglobin 28.8pg Mean Corpuscular Hemoglobin Concent 34.9g/dl Red Cell Distribution Width 12.4% Platelet Count 68768^3/UL Mean Platelet Volume 10.8fl Neutrophils % 63.5% Lymphocytes % 27.1% Monocytes % 5.2% Eosinophils % 3.2% Basophils % 0.4% Nucleated Red Blood Cells % 0.0/100WBC Neutrophils # 7.110^3/ul Lymphocytes # 3.110^3/ul Monocytes # 0.610^3/ul Eosinophils # 0.410^3/ul Basophils # 0.110^3/ul Nucleated Red Blood Cells # 0.010^3/ul Sodium Level 142mmol/L Potassium Level 3.8mmol/L Chloride Level 102mmol/L Carbon Dioxide Level 26mmol/L Anion Gap 18 Blood Urea Nitrogen 13mg/dl Creatinine 0.81mg/dl Glucose Level 103mg/dl Calcium Level 9.3mg/dl Total Bilirubin 0.8mg/dl Direct Bilirubin 0.00mg/dl Indirect Bilirubin 0.8mg/dl Aspartate Amino Transf (AST/SGOT) 34IU/L Alanine Aminotransferase (ALT/SGPT) 39IU/L Alkaline Phosphatase 71IU/L Total Protein 8.4g/dl Albumin 4.7g/dl Globulin 3.70g/dl Albumin/Globulin Ratio 1.27 Lipase 133U/L Current Medications Medications (Trade) Dose Ordered Sig/Lalito Route PRN Reason Start Time Stop Time Status Last Admin Dose Admin Sodium Chloride (NS) 1,000 ml @ 1,000 mls/hr Q1H STAT IV 12/24/16 17:28 12/24/16 18:27 DC 12/24/16 17:49 Ondansetron HCl (Zofran Inj) 4 mg ONCE STAT IV 12/24/16 17:28 12/24/16 17:30 DC 12/24/16 17:48 Ketorolac Tromethamine (Toradol) 30 mg ONCE STAT IV 12/24/16 17:28 12/24/16 17:30 DC 12/24/16 17:49 Procedures/MDM Urine is negative. CBC shows white blood cell count 11. CMP shows no acute abnormalities. Patient was given Zofran 4 mg IV and Toradol 30 mg IV. She is negative. His presents with low back pain with signs of musculoskeletal strain but also has flank tenderness and right mid abdominal tenderness with nausea and a few episodes of vomiting. CT abdomen pelvis noncontrast pending at time of dictation. This will be signed out to MID level [place] and supervising ER physician for further evaluation and treatment which will depend on pending studies. Patient currently has no signs or symptoms of acute abdomen, sepsis, UTI, signs of pneumonia. Patient has history of appendectomy. Departure Diagnosis: Primary Impression: Low back pain Chronicity: acute Back pain laterality: right Sciatica presence: without sciatica Qualified Code: M54.5 - Acute right-sided low back pain without sciatica Additional Impression: Flank pain Condition: Stable Patient Instructions: Self-Care for Low Back Pain, Flank Pain, Uncertain Cause Additional Instructions: Cheque otro vez con harmon doctor primario en el proximo cleary or regresa para mas o nueva simptomas. DESIREE NARVAEZ MD Dec 24, 2016 20:12
[2016-12-24] MEDS ORDERED: morphine 4 MG/ML VIAL IV STA (20:15)
--- NOTE | 2016-12-24 20:37 | RADRPT ---
PROCEDURE: CT abdomen and pelvis without intravenous contrast. CLINICAL INDICATION: Pain. TECHNIQUE: CT of the abdomen/pelvis was performed utilizing axial images with reconstructions in s agittal and coronal planes. The administered radiation dose is CTDI 9 mGy, DLP 454 mGy-cm. One or mo re of the following dose reduction techniques were used: automated exposure control, adjustment of t he mA and/or kV according to patient size and/or use of iterative reconstruction technique. COMPARISON: No pertinent prior examinations were submitted for comparison. FINDINGS: Visualized Chest: The visualized lung bases are clear. Abdomen: The spleen, pancreas, and adrenal glands are unremarkable. The liver is diffusely decreased in at tenuation, compatible with hepatic steatosis. The kidneys are without hydronephrosis. No definite urinary calculi are seen. There is no evidence of bowel obstruction. Prior appendectomy is noted. No intra-abdominal free air is seen. Prior cholecystectomy is noted. There is no evidence of intra-abdominal adenopathy or free fluid. Pelvis: There is no evidence of pelvic adenopathy. The uterus and ovaries are without enlargement. The uri nary bladder is unremarkable. There is no pelvic free fluid. Osseous structures: Unremarkable. IMPRESSION: No acute findings. Hepatic steatosis. RPTAT: HIKT .Alonso Pablo MD, MD Date Time Electronically viewed and signed by .Alonso Pablo MD, on 12/24/2016 20:37 .T/
== END 2016-12-24 23:23 | disposition home or self-care (01) ==
LOC: FTE 16:55
DX: M54.5 Low back pain (principal)
CPT/HCPCS: 36415; 74176; 80053; 81003; 83690; 85025; 96374; 96375; J1885; J2270; J2405; J7030; Z7502

== ENCOUNTER 2017-01-23 19:14 | Emergency (ER) | payer MEDICAID ==
[~2017-01-23] VITALS: Ht 147.3 cm; Wt 64.8 kg
[2017-01-23 19:18] VITALS: Ht 147.3 cm; Wt 64.8 kg
[2017-01-23] MEDS ORDERED: SOD CHLORIDE 0.9% 1,000 ML IV STA (21:24)
[2017-01-23] MEDS ORDERED: morphine 4 MG/ML VIAL IV STA (21:24)
[2017-01-23] MEDS ORDERED: ONDANSETRON 4 MG INJ IV STA (21:24)
--- NOTE | 2017-01-23 21:53 | RADRPT ---
PROCEDURE: CT Brain without contrast. CLINICAL INDICATION: Pain, headache TECHNIQUE: Routine CT scan of the brain was performed on a high resolution multi detector scanner without intravenous contrast. One or more of the following dose reduction techniques were used: Auto mated exposure control; Adjustment of the mA and/or kV according to patient size; Use of iterative r econstruction technique. CTDI = 44 mGy. DLP = 720 mGy-cm. DICOM images are available. COMPARISON: CT BRAIN 11/16/2012 FINDINGS: Hemorrhage: No evidence of intracranial hemorrhage. Acute ischemic changes: No evidence of acute ischemic changes. Mass effect: None. Parenchymal volume: Within normal limits for age. Ventricular system: Concordant with parenchymal volume. Chronic changes: Parenchymal attenuation is within normal limits. Extracranial soft tissues: Unremarkable. Calvarium: No fractures. Paranasal sinuses: Visualized paranasal sinuses are clear. Mastoid air cells: Visualized mastoid air cells are clear. IMPRESSION: No acute intracranial abnormalities. Normal appearance of the brain parenchyma. Unchanged from the previous examination. RPTAT: AADD .Joey Ivey MD, MD Date Time Electronically viewed and signed by .Joey Ivey MD, on 01/23/2017 21:53 .B/
[2017-01-23 22:10] LABS: BASOPHILS % 0.4 % (0.0-2.0); EOSINOPHILS # 0.2 10^3/ul (0.0-0.5); EOSINOPHILS % 1.7 % (0.0-7.0); HEMATOCRIT 35.7 % (37.0-47.0); HEMOGLOBIN 12.6 g/dl (12.0-16.0); LYMPHOCYTES # 3.3 10^3/ul (0.8-2.9); LYMPHOCYTES % 29.5 % (15.0-51.0); MEAN CORPUSCULAR HEMOGLOBIN 28.4 pg (29.0-33.0); MEAN CORPUSCULAR HGB CONC 35.3 g/dl (32.0-37.0); MEAN CORPUSCULAR VOLUME 80.4 fl (82.0-101.0); MEAN PLATELET VOLUME 11.1 fl (7.4-10.4); MONOCYTE # 0.5 10^3/ul (0.3-0.9); MONOCYTES % 4.5 % (0.0-11.0); NEUTROPHIL # 7.1 10^3/ul (1.6-7.5); NEUTROPHILS % 63.5 % (39.0-77.0); PLATELET COUNT 261 10^3/UL (140-415); RED BLOOD COUNT 4.44 10^6/ul (4.20-5.40); RED CELL DISTRIBUTION WIDTH 12.2 % (11.5-14.5); WHITE BLOOD COUNT 11.1 10^3/ul (4.8-10.8)
[2017-01-23 22:23] LABS: ADD UMIC NO; UR ASCORBIC ACID NEGATIVE (NEGATIVE); UR BILIRUBIN (Dip) NEGATIVE (NEGATIVE); UR BLOOD (Dip) NEGATIVE (NEGATIVE); UR CLARITY CLEAR (CLEAR); UR COLOR STRAW (YELLOW); UR GLUCOSE (Dip) NEGATIVE (NEGATIVE); UR KETONES (Dip) NEGATIVE (NEGATIVE); UR LEUKOCYTE ESTERASE (Dip) NEGATIVE Leu/ul (NEGATIVE); UR NITRITE (Dip) NEGATIVE (NEGATIVE); UR SPECIFIC GRAVITY (Dip) 1.014 (1.003-1.030); UR TOTAL PROTEIN (Dip) NEGATIVE (NEGATIVE); UR UROBILINOGEN (Dip) NEGATIVE (NEGATIVE)
[2017-01-23 22:34] LABS: ALBUMIN 4.4 g/dl (3.3-4.9); ALBUMIN/GLOBULIN RATIO 1.22; BILIRUBIN,INDIRECT 0.5 mg/dl (0-1.1); BILIRUBIN,TOTAL 0.5 mg/dl (0.2-1.3); CALCIUM 9.6 mg/dl (8.4-10.2); CREATININE 0.7 mg/dl (0.44-1.00); POTASSIUM 3.8 mmol/L (3.5-5.1)
[2017-01-23] MEDS ORDERED: FIORICET PO (23:11)
--- NOTE | 2017-01-23 23:17 | ERD ---
ER Documentation Chief Complaint Chief Complaint headache x2 days +n/v HPI This is a 36-year-old female presents to the ER with a headache that started yesterday. Headache is located at the top of her head and radiates down to the back of her neck or shoulders. The patient denies any trauma to the head. She tried taking ibuprofen however did not work. Patient states that she also feels dizzy as if she is going to pass out secondary to headache. She admits to nausea and vomiting. She also states that she has bilateral hand numbness with headache. She denies any weaknesses of her upper or lower extremities. Pain is constant and severe. She does not have any fevers or chills. She denies any neck stiffness. Denies any chest pain or shortness of breath per she denies any cough or cold symptoms. ROS 12 point review of systems was done, all negative except per HPI. Medications Home Meds Active Scripts Acetamin/Butalbital/Caffeine* (Fioricet*) [id number] Tab, 1 TAB PO Q6H Y for PAIN, #30 TAB Prov:MAYURI LYN 01/23/17 Tramadol HCl (Tramadol HCl) 50 Mg Tablet, 50 MG PO Q4 Y for PAIN, #20 TAB Prov:DESIREE NARVAEZ MD 12/24/16 Ibuprofen* (Motrin*) 600 Mg Tab, 600 MG PO Q6, #20 TAB Prov:DESIREE NARVAEZ MD 12/24/16 Naproxen* (Naprosyn*) 500 Mg Tablet, 500 MG PO BID Y for PAIN AND/OR INFLAMMATION, #30 TAB Prov:JOEY LAN PA-C 10/16/16 Nitrofurantoin Monohyd Macrocr* (Macrobid*) 100 Mg Capsr, 100 MG PO BID for 7 Days, #14 CAP Prov:JOEY LAN PA-C 10/16/16 Ranitidine Hcl* (Zantac*) 150 Mg Tablet, 150 MG PO BID Y for EPIGASTRIC PAIN, # 30 TAB Prov:TORIE BERNAL NP 07/31/16 Omeprazole* (Omeprazole*) 40 Mg Capsule.dr, 40 MG PO DAILY, #14 CAP Prov:TORIE BRENAL NP 07/31/16 Nitrofurantoin Monohyd Macrocr* (Macrobid*) 100 Mg Capsr, 100 MG PO BID for 7 Days, CAP Prov:GABETORIE Crystal SUPERVISOR CABINETMAKER 07/31/16 Naproxen* (Naproxen*) 500 Mg Tablet, 500 MG PO BID Y for PAIN, #10 TAB Prov:ASHLEIGH BASHIR 05/13/16 Azithromycin* (Zithromax*) 500 Mg Tablet, 500 MG PO DAILY for 5 Days, TAB Prov:LAURA CUEVAS PA-C 03/28/16 Acetaminophen* (Tylenol*) 325 Mg Tablet, 2 TAB PO Q4 Y for PAIN AND OR ELEVATED TEMP, #30 TAB Prov:LAURA CUEVAS PA-C 03/28/16 Tramadol HCl (Tramadol HCl) 50 Mg Tablet, 50 MG PO Q4 Y for PAIN, #15 TAB Prov:DESIREE NARVAEZ MD 03/24/16 Lorazepam* (Ativan*) 0.5 Mg Tablet, 0.5 MG PO Q8, #10 TAB Prov:DESIREE NARVAEZ MD 03/24/16 Cyclobenzaprine Hcl* (Cyclobenzaprine Hcl*) 10 Mg Tablet, 10 MG PO TID, #15 TAB Prov:DESIREE NARVAEZ MD 03/24/16 Ibuprofen* (Motrin*) 600 Mg Tab, 600 MG PO Q6, #15 TAB Prov:DESIREE NARVAEZ MD 03/24/16 Cyclobenzaprine Hcl* (Cyclobenzaprine Hcl*) 10 Mg Tablet, 10 MG PO TID, #15 TAB Prov:PAVEL ROSS PA-C 03/18/16 Naproxen* (Naprosyn*) 500 Mg Tablet, 500 MG PO BID Y for PAIN AND/OR INFLAMMATION, #30 TAB Prov:PAVEL ROSS PA-C 03/18/16 Hydrocodone/Acetaminophen ([place] 10-325 Tablet) 1 Each Tablet, 1 TAB PO Q6H Y for PAIN, #7 TAB Prov:PAVEL ROSS PA-C 03/18/16 Hydrocodone/Acetaminophen ([place] 10-325 Tablet) 1 Each Tablet, 1 TAB PO Q6H Y for PAIN, #20 TAB Prov:JAXNO MORAN PA-C 02/24/16 Nitrofurantoin Monohyd Macrocr* (Macrobid*) 100 Mg Capsr, 100 MG PO BID for 7 Days, CAP Prov:MORANJAXON HELM 02/24/16 Hydrocodone/Acetaminophen ([place] 5-325 Tablet) 1 Each Tablet, 1 TAB PO Q6H Y for PAIN, #7 TAB Prov:NHI MOHAMUD PA-C 11/27/15 Famotidine* (Pepcid*) 20 Mg Tablet, 20 MG PO BID for 4 Days, #30 TAB Prov:NHI MOHAMUD PA-C 11/27/15 Metronidazole* (Flagyl*) 500 Mg Tablet, 500 MG PO Q8 for 7 Days, TAB Prov:CORONA BLEU SUPERVISOR CABINETMAKER 02/22/15 Hydrocodone Bit-Acetaminophen* ([place]*) 5-325 Mg Tab, 1 TAB PO Q6H Y for PAIN, # 20 TAB Prov:CORONA BLUE SUPERVISOR CABINETMAKER 02/22/15 Allergies Allergies: Coded Allergies: ciprofloxacin (Verified Allergy, Severe, NAUSEA, DYSPNEA, RIGIDITY OF HANDS, LEGS, 12/24/16) ampicillin (Verified Allergy, Unknown, RASH, 12/24/16) PMhx/Soc History of Surgery: Yes (, appendectomy) Anesthesia Reaction: No Hx Neurological Disorder: No Hx Respiratory Disorders: No Hx Cardiac Disorders: No Hx Psychiatric Problems: No Hx Miscellaneous Medical Probl: No (gallstones) Hx Alcohol Use: No Hx Substance Use: No Hx Tobacco Use: No Smoking Status: Never smoker Physical Exam Vitals Vital Signs Date Time Temp Pulse Resp B/P Pulse Ox O2 Delivery O2 Flow Rate FiO2 01/23/17 19:18 99.4 93 20 133/82 99 Physical Exam GENERAL: The patient is well developed and appropriate for usual state of health , in no apparent distress. HEENT: Atraumatic. Conjunctivae are pink. Pupils equal, round, and reactive to light. Extraocular muscles are grossly intact. Bilateral tympanic membranes are clear with no evidence of erythema, bulging or perforation. No sinus tenderness. NECK: C-spine is soft and supple. There is no cervical lymphadenopathy. CHEST: Clear to auscultation bilaterally. There are no rales, wheezes or rhonchi. HEART: Regular rate and rhythm. No murmurs, clicks, rubs or gallops. EXTREMITIES: Equal pulses bilaterally. There is no peripheral clubbing, cyanosis or edema. No focal swelling or erythema. Full range of motion. Grossly neurovascularly intact. NEURO: Alert and oriented. Cranial nerves II through XII are intact. Motor strength in all 4 extremities with 5/5 strength. Sensation grossly intact. Normal speech and gait. Negative Rhomberg. +2 DTRs. SKIN: There is no apparent rash or petechia. The skin is warm and dry. Result Diagram: 01/23/17213101/23/172131 Results 24 hrs Laboratory Tests Test 01/23/17 21:27 01/23/17 21:32 Urine Color STRAW Urine Clarity CLEAR Urine pH 7.0 Urine Specific [place] 1.014 Urine Ketones NEGATIVEmg/dL Urine Nitrite NEGATIVEmg/dL Urine Bilirubin NEGATIVEmg/dL Urine Urobilinogen NEGATIVEmg/dL Urine Leukocyte Esterase NEGATIVELeu/ul Urine Hemoglobin NEGATIVEmg/dL Urine Glucose NEGATIVEmg/dL Urine Total Protein NEGATIVEmg/dl White Blood Count 11.110^3/ul Red Blood Count 4.4410^6/ul Hemoglobin 12.6g/dl Hematocrit 35.7% Mean Corpuscular Volume 80.4fl Mean Corpuscular Hemoglobin 28.4pg Mean Corpuscular Hemoglobin Concent 35.3g/dl Red Cell Distribution Width 12.2% Platelet Count 24911^3/UL Mean Platelet Volume 11.1fl Neutrophils % 63.5% Lymphocytes % 29.5% Monocytes % 4.5% Eosinophils % 1.7% Basophils % 0.4% Nucleated Red Blood Cells % 0.0/100WBC Neutrophils # 7.110^3/ul Lymphocytes # 3.310^3/ul Monocytes # 0.510^3/ul Eosinophils # 0.210^3/ul Basophils # 0.010^3/ul Nucleated Red Blood Cells # 0.010^3/ul Sodium Level 144mmol/L Potassium Level 3.8mmol/L Chloride Level 106mmol/L Carbon Dioxide Level 26mmol/L Anion Gap 16 Blood Urea Nitrogen 14mg/dl Creatinine 0.70mg/dl Glucose Level 103mg/dl Calcium Level 9.6mg/dl Total Bilirubin 0.5mg/dl Direct Bilirubin 0.00mg/dl Indirect Bilirubin 0.5mg/dl Aspartate Amino Transf (AST/SGOT) 21IU/L Alanine Aminotransferase (ALT/SGPT) 30IU/L Alkaline Phosphatase 62IU/L Total Protein 8.0g/dl Albumin 4.4g/dl Globulin 3.60g/dl Albumin/Globulin Ratio 1.22 Current Medications Medications (Trade) Dose Ordered Sig/Lalito Route PRN Reason Start Time Stop Time Status Last Admin Dose Admin Sodium Chloride (NS) 1,000 ml @ 1,000 mls/hr Q1H STAT IV 01/23/17 21:24 01/23/17 22:23 DC 01/23/17 21:35 Ondansetron HCl (Zofran Inj) 4 mg ONCE STAT IV 01/23/17 21:24 01/23/17 21:26 DC 01/23/17 21:35 Morphine Sulfate (morphine) 4 mg ONCE STAT IV 01/23/17 21:24 01/23/17 21:26 DC 01/23/17 21:35 [place] [id number] Radiology Main Line: [phone] DIAGNOSTIC IMAGING REPORT Patient: SUSY SESAY : 1980 Age: 36 Sex: F MR #: [id number] DOS: 01/23/172123 Ordering MD: MAYURI LYN PA-C Location: [facility] Room/Bed: PROCEDURE: CT Brain without contrast. CLINICAL INDICATION: Pain, headache TECHNIQUE: Routine CT scan of the brain was performed on a high resolution multi detector scanner without intravenous contrast. One or more of the following dose reduction techniques were used: Automated exposure control; Adjustment of the mA and/or kV according to patient size; Use of iterative reconstruction technique. CTDI = 44 mGy. DLP = 720 mGy-cm. DICOM images are available. COMPARISON: CT BRAIN 11/16/2012 FINDINGS: Hemorrhage: No evidence of intracranial hemorrhage. Acute ischemic changes: No evidence of acute ischemic changes. Mass effect: None. Parenchymal volume: Within normal limits for age. Ventricular system: Concordant with parenchymal volume. Chronic changes: Parenchymal attenuation is within normal limits. Extracranial soft tissues: Unremarkable. Calvarium: No fractures. Paranasal sinuses: Visualized paranasal sinuses are clear. Mastoid air cells: Visualized mastoid air cells are clear. IMPRESSION: No acute intracranial abnormalities. Normal appearance of the brain parenchyma. Unchanged from the previous examination. RPTAT: AADD .Joey Ivey MD, MD Date Time Electronically viewed and signed by .Joey Ivey MD, MD on 01/23/2017 21:53 .B/ CC: MAYURI LYN Procedures/MDM Differential Diagnosis includes but is not limited to; tension headache, migraine headache, cluster headache, sinus headache, nonspecific febrile headache, trigeminal neurologia, subdural hematoma, subarachnoid bleeding, meningitis, encephalitis. Patient is neurologically intact with no focal neurological deficits. Etiology of headache is unknown at this time, her symptoms were resolved in the ER. EKG was done [address] elevation no T- wave inversion was signed by . Patient will be sent home with [facility]. She is to follow-up with her primary care doctor within 1-2 days return to ER sooner if symptoms worsen. My medical decision making sure with the patient she understands and agrees with plan Departure Diagnosis: Primary Impression: Headache Condition: Stable Patient Instructions: Self-Care for Headaches Additional Instructions: Llame al doctor MAANA y uri shadi SELVIN PARA DENTRO DE 1-2 YI.Dgale a la secretaria que nosotros le instruimos hacer esta selvin.Avise o llame si harmon condicin se empeora antes de la selvin. Regresa aqui si peor o no mejor. MAYURI LYN Jan 23, 2017 23:17
== END 2017-01-23 23:32 | disposition home or self-care (01) ==
LOC: FTE 19:14
DX: R51 Headache (principal); R42 Dizziness and giddiness
CPT/HCPCS: 36415; 70450; 80053; 81003; 85025; 93005; 96374; 96375; J2270; J2405; J7030; Z7502

== ENCOUNTER 2017-04-09 15:56 | Emergency (ER) | END 2017-04-09 21:51 | disposition home or self-care (01) ==

== ENCOUNTER 2017-04-21 21:09 | Emergency (ER) | END 2017-04-21 21:45 | disposition home or self-care (01) ==

== ENCOUNTER 2017-09-29 18:49 | Emergency (ER) | END 2017-09-30 01:25 | disposition home or self-care (01) ==

== ENCOUNTER 2018-02-02 19:13 | Emergency (ER) | END 2018-02-02 21:01 | disposition home or self-care (01) ==

== ENCOUNTER 2018-04-23 20:26 | Emergency (ER) | payer MEDICAID ==
[~2018-04-23] VITALS: Wt 63.2 kg
[~2018-04-23 20:26] MED LIST changes: +ACET500C5 PO; +BENZ-6 PO; +CETI10CA PO; -CYCL-319 PO; +CYCL10TA7 PO; +DOXY100T20 PO; +FIORICET PO; +HYDR-3980 PO; +HYDR-4011 PO; -HYDR-902 PO; -HYDR-906 PO; +MED4DP PO; -NAPR-260 PO; +NAPR-985 PO; +ONDA4TAB8 PO; +RANI150T35 PO; -RANI150T9 PO
--- NOTE | 2018-04-24 00:03 | ERD ---
ER Documentation Chief Complaint Chief Complaint bib self, cc: cough, st, taveras for 1 day, HPI 37-year-old female, presents to the emergency department with acute onset of high fever, runny nose, chest congestion, dry cough and general malaise that started 2 days ago. The patient has been receiving [id number] medications without improvement of the symptoms. Otherwise, no shortness of breath, no rashes, no diarrhea or constipation. ROS All systems reviewed and are negative except as per history of present illness. Medications Home Meds Active Scripts Albuterol Sulfate* (Proair HFA*) 8.5 Gm Hfa.aer.ad, 2 PUFF INH Q4H PRN for WHEEZING AND SOB, #1 INHALER Prov:RAKEL DEJESUS MD 04/24/18 Promethazine HCl/Codeine (Prometh-Codein 6.25-10 mg/5 ml) 5 Ml Syrup, 5 ML PO TID for cough, #60 ML Prov:RAKEL DEJESUS MD 04/24/18 Azithromycin* (Zithromax*) 250 Mg Tablet, 250 MG PO DAILY for 4 Days, TAB Prov:RAKEL DEJESUS MD 04/24/18 Naproxen* (Naprosyn*) 500 Mg Tablet, 500 MG PO BID PRN for PAIN AND/OR INFLAMMATION, #30 TAB Prov:JOSE GUADALUPE LAN PA-C 02/02/18 Hydrocodone/Acetaminophen ([place] 10-325 Tablet) 1 Each Tablet, 1 TAB PO Q6H PRN for PAIN, #20 TAB Prov:MARTÍNEZ BOTELLO 09/30/17 Acetaminophen* (Tylophen*) 500 Mg Capsule, 1 CAP PO Q6H PRN for PAIN AND OR ELEV ATED TEMP, #20 CAP Prov:MARTÍNEZ BOTELLO 09/30/17 Ondansetron Hcl* (Zofran*) 4 Mg Tablet, 4 MG PO Q8H PRN for NAUSEA AND/OR VOMITING, #30 TAB Prov:MARTÍNEZ BOTELLO 09/30/17 Famotidine* (Pepcid*) 20 Mg Tablet, 20 MG PO DAILY for 30 Days, TAB Prov:MARTÍNEZ BOTELLO 09/30/17 Cetirizine Hcl* (Zyrtec*) 10 Mg Capsule, 10 MG PO DAILY, #10 TAB.CHEW Prov:MICHELLE BENNETT PA-C 04/21/17 Ibuprofen* (Motrin*) 600 Mg Tab, 600 MG PO Q6, #30 TAB Prov:MICHELLE BENNETT PA-C 04/21/17 Benzonatate* (Tessalon Perle*) 100 Mg Capsule, 100 MG PO Q8H PRN for COUGH, #30 CAP Prov:MICHELLE BENNETT PA-C 04/21/17 Doxycycline Hyclate* (Doxycycline Hyclate*) 100 Mg Tablet.dr, 100 MG PO BID for 10 Days, TAB Prov:MICHELLE BENNETT PA-C 04/21/17 Famotidine* (Pepcid*) 20 Mg Tablet, 20 MG PO BID for 10 Days, #20 TAB Prov:CATHY,RONALD 04/09/17 Naproxen* (Naprosyn*) 500 Mg Tablet, 500 MG PO BID PRN for PAIN AND/OR INFLAMMATION, #20 TAB Prov:CATHY,RONALD 04/09/17 Methylprednisolone* (Medrol* DOSE PACK) 4 Mg/Dose-Pack Tab.ds.pk, 4 MG PO . DIRECTED for 7 Days, PACKET Prov:CATHY,RONALD 04/09/17 Acetamin/Butalbital/Caffeine* (Fioricet*) [id number] Tab, 1 TAB PO Q6H PRN for PAIN, #30 TAB Prov:MAYURI LYN 01/23/17 Tramadol HCl (Tramadol HCl) 50 Mg Tablet, 50 MG PO Q4 PRN for PAIN, #20 TAB Prov:DESIREE NARVAEZ MD 12/24/16 Ibuprofen* (Motrin*) 600 Mg Tab, 600 MG PO Q6, #20 TAB Prov:DESIREE NARVAEZ MD 12/24/16 Naproxen* (Naprosyn*) 500 Mg Tablet, 500 MG PO BID PRN for PAIN AND/OR INFLAMMATION, #30 TAB Prov:JOSE GUADALUPE LAN PA-C 10/16/16 Nitrofurantoin Monohyd Macrocr* (Macrobid*) 100 Mg Capsr, 100 MG PO BID for 7 Days, #14 CAP Prov:JOSE GUADALUPE LAN PA-C 10/16/16 Ranitidine Hcl* (Zantac*) 150 Mg Tablet, 150 MG PO BID PRN for EPIGASTRIC PAIN, #30 TAB Prov:TORIE BERNAL NP 07/31/16 Omeprazole* (Omeprazole*) 40 Mg Capsule.dr, 40 MG PO DAILY, #14 CAP Prov:GABETORIE X. ILSA 07/31/16 Nitrofurantoin Monohyd Macrocr* (Macrobid*) 100 Mg Capsr, 100 MG PO BID for 7 Days, CAP Prov:TORIE BERNAL NP 07/31/16 Naproxen* (Naproxen*) 500 Mg Tablet, 500 MG PO BID PRN for PAIN, #10 TAB Prov:ASHLEIGH BASHIR DO 05/13/16 Azithromycin* (Zithromax*) 500 Mg Tablet, 500 MG PO DAILY for 5 Days, TAB Prov:LAURA CUEVASC 03/28/16 Acetaminophen* (Tylenol*) 325 Mg Tablet, 2 TAB PO Q4 PRN for PAIN AND OR ELEVATED TEMP, #30 TAB Prov:LAURA CUEVASC 03/28/16 Tramadol HCl (Tramadol HCl) 50 Mg Tablet, 50 MG PO Q4 PRN for PAIN, #15 TAB Prov:DESIREE NARVAEZ MD 03/24/16 Lorazepam* (Ativan*) 0.5 Mg Tablet, 0.5 MG PO Q8, #10 TAB Prov:DESIERE NARVAEZ MD 03/24/16 Cyclobenzaprine Hcl* (Cyclobenzaprine Hcl*) 10 Mg Tablet, 10 MG PO TID, #15 TAB Prov:DESIREE NARVAEZ MD 03/24/16 Ibuprofen* (Motrin*) 600 Mg Tab, 600 MG PO Q6, #15 TAB Prov:DESIREE NARVAEZ MD 03/24/16 Cyclobenzaprine Hcl* (Cyclobenzaprine Hcl*) 10 Mg Tablet, 10 MG PO TID, #15 TAB Prov:PAVEL ROSSC 03/18/16 Naproxen* (Naprosyn*) 500 Mg Tablet, 500 MG PO BID PRN for PAIN AND/OR INFLAMMATION, #30 TAB Prov:PAVEL ROSSC 03/18/16 Hydrocodone/Acetaminophen ([place] 10-325 Tablet) 1 Each Tablet, 1 TAB PO Q6H PRN for PAIN, #7 TAB Prov:PAVEL ROSS PA-C 03/18/16 Hydrocodone/Acetaminophen ([place] 10-325 Tablet) 1 Each Tablet, 1 TAB PO Q6H PRN for PAIN, #20 TAB Prov:JAXON MORAN PA-C 02/24/16 Nitrofurantoin Monohyd Macrocr* (Macrobid*) 100 Mg Capsr, 100 MG PO BID for 7 Days, CAP Prov:JAXON MORAN PA-C 02/24/16 Hydrocodone/Acetaminophen ([place] 5-325 Tablet) 1 Each Tablet, 1 TAB PO Q6H PRN for PAIN, #7 TAB Prov:NHI MOHAMUD PA-C 11/27/15 Famotidine* (Pepcid*) 20 Mg Tablet, 20 MG PO BID for 4 Days, #30 TAB Prov:NHI MOHAMUD PA-C 11/27/15 Metronidazole* (Flagyl*) 500 Mg Tablet, 500 MG PO Q8 for 7 Days, TAB Prov:CORONA BLUE WATER PROJECT MANAGER 02/22/15 Hydrocodone Bit-Acetaminophen* ([place]*) 5-325 Mg Tab, 1 TAB PO Q6H PRN for PAIN, #20 TAB Prov:CORONA BLUE WATER PROJECT MANAGER 02/22/15 Allergies Allergies: Coded Allergies: ciprofloxacin (Verified Allergy, Severe, NAUSEA, DYSPNEA, RIGIDITY OF HANDS, LEGS, 12/24/16) Penicillins (Verified Allergy, Unknown, 09/29/17) ampicillin (Verified Allergy, Unknown, RASH, 12/24/16) PMhx/Soc History of Surgery: Yes (, appendectomy) Anesthesia Reaction: No Hx Neurological Disorder: No Hx Respiratory Disorders: No Hx Cardiac Disorders: No Hx Psychiatric Problems: No Hx Miscellaneous Medical Probl: No (gallstones) Hx Alcohol Use: No Hx Substance Use: No Hx Tobacco Use: No FmHx Family History: No diabetes, No coronary disease Physical Exam Vitals Vital Signs Date Temp Pulse Resp B/P (MAP) Pulse Ox O2 O2 Flow FiO2 Time Delivery Rate 04/24/18 98.3 89 18 114/73 98 Room Air 02:52 (87) 04/24/18 90 26 99 21 00:48 04/23/18 99.5 115 19 136/57 100 20:34 (83) Physical Exam Patient is in moderate distress due to cough and fever, vital signs showed fever. EYES: PERRLA, EOMI, injected sclerae EARS: Canals clear, erythematous tympanic membranes THROAT: Erythematous oropharynx. NECK: Supple, No lymphadenopathy. Full ROM without pain or tenderness. HEART: RRR, no rubs, murmurs, clicks or gallops. LUNGS: Bilateral rhonchi to auscultation. ABDOMEN: Soft, non-tender without masses or hepatosplenomegaly. EXTREMITIES: No edema bilaterally. BACK: Full ROM, no deformity, normal back exam NEURO: Cranial nerves grossly intact, no motor or sensory deficit Results 24 hrs Current Medications Medications Dose Sig/Lalito Start Time Status Last (Trade) Ordered Route PRN Stop Time Admin Dose Reason Admin Albuterol 5 mg ONCE STAT 04/24/18 DC 04/24/18 (Proventil HHN 00:29 04/24/18 00:48 0.083% (Neb)) 00:31 Hydrocodone 5 ml ONCE ONCE 04/24/18 DC 04/24/18 Bit/ PO 00:30 04/24/18 01:08 Homatropine 00:31 Methylb (Hycodan Liquid) Oseltamivir 75 mg ONCE ONCE 04/24/18 DC 04/24/18 Phosphate PO 00:30 04/24/18 01:08 (Tamiflu) 00:31 500 mg ONCE ONCE 04/24/18 DC 04/24/18 Azithromycin PO 01:00 04/24/18 01:08 (Zithromax) 01:01 Hydrocodone 5 ml ONCE ONCE 04/24/18 DC 04/24/18 Bit/ PO 02:00 04/24/18 02:26 Homatropine 02:01 Methylb (Hycodan Liquid) Procedures/MDM At the time of discharge, patient with nontoxic appearance, vital signs stable, no respiratory distress. Differential diagnosis include but not limited to: Respiratory infection bacterial/viral/fungal. Influenza, whooping cough, pneumonitis, allergies, GERD. Less likely foreign body aspiration, cardiac related. Physical examination and clinical presentation consistent most likely with viral infection with early superimposed bacterial infection. During the ED course the patient remained stable, no new complaints. Treatment options and clinical impression discussed with the patient who agrees with management. The patient is stable to be treated outpatient and will be discharged home. Some side effects of prescribed medications (headache, rash, nausea, vomiting, diarrhea, interactions with other medications) were reviewed. The patient needs to follow up with the primary care provider in the next 48h. If symptoms persist, worsen or new symptoms develop, then patient should return to the ED immediately. Disclaimer: Inadvertent spelling and grammatical errors are likely due to EHR/dictation software use and do not reflect on the overall quality of patient care. Also, please note that the electronic time recorded on this note does not necessarily reflect the actual time of the patient encounter. Departure Diagnosis: Primary Impression: Cough Additional Impression: Fever Condition: Stable Additional Instructions: Muchas jeremy por [facility] para harmon servicio. Esperamos que en harmon visita a la jl de emergencia harmon problema medico haya sido solucionado y que se sienta mucho mejor. Para estar seguros que harmon mejoria sigue en proceso, le pedimos el favor de hacer shadi saima de seguimiento medico con harmon doctor primario en los proximos 2-4 cleary. Lleve con usted estos documentos y las medicinas recetadas. Si vineet sintomas empeoran, NO SE ESPERE, por favor regrese a lj de emergencia INMEDIATAMENTE. En aminta que usted no tenga un mdico de atencin primaria: Llame al mdico o clnica comunitaria de referencia que aparece abajo keily las horas de consultorio para hacer shadi saima para que le vean. CLINICAS: [facility] [phone] [facility] [phone] [facility] [phone] [facility] [phone] [address] [facility] [phone] [facility] [phone] MD Apr 24, 2018 00:03
[2018-04-24] MEDS ORDERED: ALBUTEROL 0.083% (NEB) 2.5 MG/3 ML AMP HHN STA (00:29)
[2018-04-24] MEDS ORDERED: OSELTAMIVIR 75 MG CAP PO ONE (00:30)
[2018-04-24] MEDS ORDERED: HYDROCODONE/HOMATROPINE 5ML CUP PO ONE ×2 (00:30→02:00)
[2018-04-24] MEDS ORDERED: AZITHROMYCIN 250 MG TAB PO ONE (01:00)
[2018-04-24] MEDS ORDERED: PROM5SYR2 PO (02:35)
[2018-04-24] MEDS ORDERED: ALBU8.5H8 INH (02:35)
[2018-04-24] MEDS ORDERED: AZIT250T PO (02:35)
[2018-04-24 02:52] VITALS: BP 114/73; PULSE 89; RESP 18
== END 2018-04-24 02:53 | disposition home or self-care (01) ==
LOC: FTE 20:26
DX: R05 Cough (principal); R50.9 Fever, unspecified
CPT/HCPCS: 71046; 94664; Z7502; Z7610

== ENCOUNTER 2018-05-12 22:15 | Emergency (ER) | payer MEDICAID ==
[~2018-05-12] VITALS: Ht 152.4 cm; Wt 65.1 kg
[~2018-05-12 22:15] MED LIST changes: +ALBU8.5H8 INH; +AZIT250T PO; +PROM5SYR2 PO
[2018-05-12 22:39] VITALS: Ht 152.4 cm; Wt 65.1 kg
[2018-05-13] MEDS ORDERED: ACET500C5 PO (05:07)
[2018-05-13 05:16] VITALS: BP 137/83; PULSE 70; RESP 18
--- NOTE | 2018-05-13 05:25 | ERD ---
ER Documentation Chief Complaint Chief Complaint R upper head pain, nausea after hitting head 2 days ago, no loss of conscio HPI Patient is a 37-year-old female presents the ER for concerns of right upper head pain. Patient states that she hit her head on the bathroom cabinet while bending down towards 2 days ago. Patient states she continues to feel nauseous. She denies any vomiting. Patient denies any visual changes. Patient did not l ose consciousness. Patient denies any neck pain, neck stiffness, back pain. Patient denies any chest pain or shortness of breath. Patient denies any abdominal pain. Patient reports taking Tylenol for her symptoms. ROS All systems reviewed and are negative except as per history of present illness. Medications Home Meds Active Scripts Acetaminophen* (Tylophen*) 500 Mg Capsule, 1 CAP PO Q6H PRN for PAIN AND OR ELEVATED TEMP, #20 CAP Prov:LOPEZ LARIOS PA-C 05/13/18 Albuterol Sulfate* (Proair HFA*) 8.5 Gm Hfa.aer.ad, 2 PUFF INH Q4H PRN for WHEEZING AND SOB, #1 INHALER Prov:RAKEL DEJESUS MD 04/24/18 Promethazine HCl/Codeine (Prometh-Codein 6.25-10 mg/5 ml) 5 Ml Syrup, 5 ML PO TID for cough, #60 ML Prov:RAKEL DEJESUS MD 04/24/18 Azithromycin* (Zithromax*) 250 Mg Tablet, 250 MG PO DAILY for 4 Days, TAB Prov:RAKEL DEJESUS MD 04/24/18 Naproxen* (Naprosyn*) 500 Mg Tablet, 500 MG PO BID PRN for PAIN AND/OR INFLAMMATION, #30 TAB Prov:JOSE GUADALUPE LAN PA-C 02/02/18 Hydrocodone/Acetaminophen ([place] 10-325 Tablet) 1 Each Tablet, 1 TAB PO Q6H PRN for PAIN, #20 TAB Prov:MARTÍNEZ BOTELLO 09/30/17 Acetaminophen* (Tylophen*) 500 Mg Capsule, 1 CAP PO Q6H PRN for PAIN AND OR ELEVATED TEMP, #20 CAP Prov:MARTÍNEZ BOTELLO 09/30/17 Ondansetron Hcl* (Zofran*) 4 Mg Tablet, 4 MG PO Q8H PRN for NAUSEA AND/OR VOMITING, #30 TAB Prov:MICHELLEILAMARTÍNEZ FLORES F 09/30/17 Famotidine* (Pepcid*) 20 Mg Tablet, 20 MG PO DAILY for 30 Days, TAB Prov:MICHELLEILASHELBY FLORESAR F 09/30/17 Cetirizine Hcl* (Zyrtec*) 10 Mg Capsule, 10 MG PO DAILY, #10 TAB.CHEW Prov:MICHELLE BENNETT PA-C 04/21/17 Ibuprofen* (Motrin*) 600 Mg Tab, 600 MG PO Q6, #30 TAB Prov:MICHELLE BENNETT PA-C 04/21/17 Benzonatate* (Tessalon Perle*) 100 Mg Capsule, 100 MG PO Q8H PRN for COUGH, #30 CAP Prov:MICHELLE BENNETT PA-C 04/21/17 Doxycycline Hyclate* (Doxycycline Hyclate*) 100 Mg Tablet.dr, 100 MG PO BID for 10 Days, TAB Prov:MICHELLE BENNETT PA-C 04/21/17 Famotidine* (Pepcid*) 20 Mg Tablet, 20 MG PO BID for 10 Days, #20 TAB Prov:CATHY,RONALD 04/09/17 Naproxen* (Naprosyn*) 500 Mg Tablet, 500 MG PO BID PRN for PAIN AND/OR INFLAMMATION, #20 TAB Prov:CATHY,RONALD 04/09/17 Methylprednisolone* (Medrol* DOSE PACK) 4 Mg/Dose-Pack Tab.ds.pk, 4 MG PO . DIRECTED for 7 Days, PACKET Prov:CATHY,RONALD 04/09/17 Acetamin/Butalbital/Caffeine* (Fioricet*) [id number] Tab, 1 TAB PO Q6H PRN for PAIN, #30 TAB Prov:MAYURI LYN 01/23/17 Tramadol HCl (Tramadol HCl) 50 Mg Tablet, 50 MG PO Q4 PRN for PAIN, #20 TAB Prov:DESIREE NARVAEZ MD 12/24/16 Ibuprofen* (Motrin*) 600 Mg Tab, 600 MG PO Q6, #20 TAB Prov:DESIREE NARVAEZ MD 12/24/16 Naproxen* (Naprosyn*) 500 Mg Tablet, 500 MG PO BID PRN for PAIN AND/OR INFLAMMATION, #30 TAB Prov:JOSE GUADALUPE LAN PA-C 10/16/16 Nitrofurantoin Monohyd Macrocr* (Macrobid*) 100 Mg Capsr, 100 MG PO BID for 7 Days, #14 CAP Prov:JOSE GUADALUPE LAN PA-C 10/16/16 Ranitidine Hcl* (Zantac*) 150 Mg Tablet, 150 MG PO BID PRN for EPIGASTRIC PAIN, #30 TAB Prov:TORIE BERNAL. ORTHODONTIC TECHNICIAN 07/31/16 Omeprazole* (Omeprazole*) 40 Mg Capsule.dr, 40 MG PO DAILY, #14 CAP Prov:TORIE BERNAL. ORTHODONTIC TECHNICIAN 07/31/16 Nitrofurantoin Monohyd Macrocr* (Macrobid*) 100 Mg Capsr, 100 MG PO BID for 7 Days, CAP Prov:TORIE BERNAL. ORTHODONTIC TECHNICIAN 07/31/16 Naproxen* (Naproxen*) 500 Mg Tablet, 500 MG PO BID PRN for PAIN, #10 TAB Prov:ASHLEIGH BASHIR DO 05/13/16 Azithromycin* (Zithromax*) 500 Mg Tablet, 500 MG PO DAILY for 5 Days, TAB Prov:LAURA CUEVAS PA-C 03/28/16 Acetaminophen* (Tylenol*) 325 Mg Tablet, 2 TAB PO Q4 PRN for PAIN AND OR ELEVATED TEMP, #30 TAB Prov:LAURA CUEVAS PA-C 03/28/16 Tramadol HCl (Tramadol HCl) 50 Mg Tablet, 50 MG PO Q4 PRN for PAIN, #15 TAB Prov:DESIREE NARVAEZ MD 03/24/16 Lorazepam* (Ativan*) 0.5 Mg Tablet, 0.5 MG PO Q8, #10 TAB Prov:DESIREE NARVAEZ MD 03/24/16 Cyclobenzaprine Hcl* (Cyclobenzaprine Hcl*) 10 Mg Tablet, 10 MG PO TID, #15 TAB Prov:DESIREE NARVAEZ MD 03/24/16 Ibuprofen* (Motrin*) 600 Mg Tab, 600 MG PO Q6, #15 TAB Prov:DESIREE NARVAEZ MD 03/24/16 Cyclobenzaprine Hcl* (Cyclobenzaprine Hcl*) 10 Mg Tablet, 10 MG PO TID, #15 TAB Prov:PAVEL ROSS PA-C 03/18/16 Naproxen* (Naprosyn*) 500 Mg Tablet, 500 MG PO BID PRN for PAIN AND/OR INFLAMMATION, #30 TAB Prov:PAVEL ROSSC 03/18/16 Hydrocodone/Acetaminophen ([place] 10-325 Tablet) 1 Each Tablet, 1 TAB PO Q6H PRN for PAIN, #7 TAB Prov:PAVEL ROSSC 03/18/16 Hydrocodone/Acetaminophen ([place] 10-325 Tablet) 1 Each Tablet, 1 TAB PO Q6H PRN for PAIN, #20 TAB Prov:JAXON MORAN PA-C 02/24/16 Nitrofurantoin Monohyd Macrocr* (Macrobid*) 100 Mg Capsr, 100 MG PO BID for 7 Days, CAP Prov:JAXON MORAN PA-C 02/24/16 Hydrocodone/Acetaminophen ([place] 5-325 Tablet) 1 Each Tablet, 1 TAB PO Q6H PRN for PAIN, #7 TAB Prov:NHI MOHAMUD PA-C 11/27/15 Famotidine* (Pepcid*) 20 Mg Tablet, 20 MG PO BID for 4 Days, #30 TAB Prov:NHI MOHAMUD PA-C 11/27/15 Metronidazole* (Flagyl*) 500 Mg Tablet, 500 MG PO Q8 for 7 Days, TAB Prov:CORONA BLUE ORTHODONTIC TECHNICIAN 02/22/15 Hydrocodone Bit-Acetaminophen* ([place]*) 5-325 Mg Tab, 1 TAB PO Q6H PRN for PAIN, #20 TAB Prov:CORONA BLUE ORTHODONTIC TECHNICIAN 02/22/15 Allergies Allergies: Coded Allergies: ciprofloxacin (Verified Allergy, Severe, NAUSEA, DYSPNEA, RIGIDITY OF HANDS, LEGS, 12/24/16) Penicillins (Verified Allergy, Unknown, 09/29/17) ampicillin (Verified Allergy, Unknown, RASH, 12/24/16) PMhx/Soc History of Surgery: Yes (,Appy,Tubal Ligation) Anesthesia Reaction: No Hx Neurological Disorder: No Hx Respiratory Disorders: No Hx Cardiac Disorders: No Hx Psychiatric Problems: No Hx Miscellaneous Medical Probl: Yes (Gallstones) Hx Alcohol Use: No Hx Substance Use: No Hx Tobacco Use: No FmHx Family History: No diabetes Physical Exam Vitals Vital Signs Date Temp Pulse Resp B/P (MAP) Pulse Ox O2 O2 Flow FiO2 Time Delivery Rate 05/13/18 70 18 137/83 Room Air 05:16 (101) 05/12/18 98.4 80 18 178/99 100 22:39 (125) Physical Exam GENERAL: Well-developed, well-nourished female. Appears in no acute distress. HEAD: Normocephalic, atraumatic. No deformities or ecchymosis. EYE: Pupils equal, round, and reactive to light. EOMs intact. No conjunctival erythema. No eye discharge. ENT: External ear without any masses or tenderness. Auditory canals clear bilaterally. TM visualized bilaterally, non-erythematous, non-bulging. Nasal mucosa pink with no discharge. Oropharynx is pink without any tonsillar erythema or exudates. No uvula deviation. No kissing tonsils. NECK: Supple. No meningismus. Normal ROM of the neck. LUNG: Clear to auscultation bilaterally. No rhonchi, wheezing, rales or coarse breath sounds. HEART: Regular rate and rhythm. No murmurs, rubs or gallops. EXTREMITIES: Equal pulses bilaterally. No peripheral clubbing, cyanosis or edema. No unilateral leg swelling. NEUROLOGIC: Alert and oriented x3, cooperative. Mood and affect appropriate to situation. Cranial nerves II through XII are grossly intact. Normal speech. Motor exam: 5/5 strength in upper and lower extremities. Sensory exam: Sensation intact to light touch on all four extremities. Cerebellar function exam: No dysmetria on [id number] and qyqm-cx-vadh test. Steady gait. No pronator drift. SKIN: Normal color. Warm and dry. No rashes or lesions. Results 24 hrs Current Medications Medications Dose Sig/Lalito Start Time Status Last (Trade) Ordered Route PRN Stop Time Admin Dose Reason Admin Ibuprofen 600 mg ONCE ONCE 05/13/18 (Motrin) PO 05:30 05/13/18 05:31 Procedures/MDM ED COURSE: The patient was stable throughout ED course. I kept the patient and/or family informed of laboratory and diagnostic imaging results throughout the ED course. DIAGNOSTIC IMAGING: Read by radiologist. DIAGNOSTIC IMAGING REPORT Patient: HERNANDEZPARGA,SUSY : 1980 Age: 37 Sex: F [id number] DOS: 05/13/18 0210 Ordering MD: LOPEZ LARIOS PA-C Location: [facility] Room/Bed: PROCEDURE: CT Brain without contrast. CLINICAL INDICATION: Headache TECHNIQUE: A CT of the brain was performed utilizing axial imaging from the skull base through the vertex without IV contrast. Multiplanar reformatted images were made. Images were reviewed on a PACS workstation. CTDIvol: 39.64 mGy DLP: 554.95 mGycm DICOM images are available. One or more of the following dose reduction techniques were utilized: 1.) Automated exposure control 2.) Adjustment of the mA +/- kV according to patient's size 3.) Use of iterative reconstruction technique. COMPARISON: None FINDINGS: CALVARIUM: Regional bones are intact. SINUSES: Paranasal sinuses and mastoid air cells are clear. BRAIN: There is no evidence of intracranial hemorrhage. Prominence of ventricles and cisterns is normal for age. Freitas - white differentiation is preserved and there is no evidence of an acute or subacute territorial infarction. No intracranial mass or mass effect. IMPRESSION: Negative unenhanced head CT. RPTAT: [facility] Physician Pito Date Time Electronically viewed and signed by Physician Pito on 05/13/2018 04:49 xB/ CC: LOPEZ LARIOS PA-C [id number] PROCEDURES: None. MEDICATIONS GIVEN: Ibuprofen Patient tolerated medication well with no adverse reactions. Patient reported improvement in pain. MEDICAL DECISION MAKING: This is a 37-year-old female who presents the ER for concerns of right-sided headache times 2 days. Patient states the pain started after she had her head on a bathroom cabinet. Patient did not lose consciousness. Vital signs were reviewed. Patient was afebrile. Patient is not hypoxic. Full neurological exam was normal. CT scan was unremarkable. See formal report above. At this time, patient's presentation is most consistent with headache. Low suspicion for old fracture, intracranial hemorrhage, meningitis, encephalitis, CO poisoning, temporal arteritis, benign intracranial hypertension.. Patient was nontoxic, non-opening prior to discharge. PRESCRIPTIONS: Tylenol DISCHARGE: At this time, patient is stable for discharge and outpatient management. I have encouraged the patient to hydrate well. I have instructed the patient to follow- up with his/her primary care physician in 1-2 days. If symptoms persist, patient may need to see a specialist for further examinations and testing. I have instructed the patient to promptly return to the ER at any time for any new or worsening symptoms including increased increased pain, fever, nausea, vomiting, numbness, neck stiffness, visual changes, weakness or LOC. The patient and/or family expressed understanding of and agreement with this plan. All questions were answered. Home care instructions were provided. Disclaimer: Inadvertent spelling and grammatical errors are likely due to EHR/dictation software use and do not reflect on the overall quality of patient care. Also, please note that the electronic time recorded on this note does not necessarily reflect the actual time of the patient encounter. Departure Diagnosis: Primary Impression: Headache Headache type: unspecified Headache chronicity pattern: unspecified darylte rn Intractability: not intractable Qualified Codes: R51 - Headache Condition: Fair Patient Instructions: Self-Care for Headaches Referrals: [facility] YOU HAVE RECEIVED A MEDICAL SCREENING EXAM AND THE RESULTS INDICATE THAT YOU DO NOT HAVE A CONDITION THAT REQUIRES URGENT TREATMENT IN THE EMERGENCY DEPARTMENT. FURTHER EVALUATION AND TREATMENT OF YOUR CONDITION CAN WAIT UNTIL YOU ARE SEEN IN YOUR DOCTORS OFFICE WITHIN THE NEXT 1-2 DAYS. IT IS YOUR RESPONSIBILITY TO MAKE AN APPOINTMENT FOR FOLOW-UP CARE. IF YOU HAVE A PRIMARY DOCTOR --you should call your primary doctor and schedule an appointment IF YOU DO NOT HAVE A PRIMARY DOCTOR YOU CAN CALL OUR PHYSICIAN REFERRAL HOTLINE AT IF YOU CAN NOT AFFORD TO SEE A PHYSICIAN YOU CAN CHOSE FROM THE FOLLOWING [facility] [address] [facility] [address] [facility] [address] [facility] [address] [facility] [facility] [address] [facility]. [facility]. [address] [facility] [facility] YOU HAVE RECEIVED A MEDICAL SCREENING EXAM AND THE RESULTS INDICATE THAT YOU DO NOT HAVE A CONDITION THAT REQUIRES URGENT TREATMENT IN THE EMERGENCY DEPARTMENT. FURTHER EVALUATION AND TREATMENT OF YOUR CONDITION CAN WAIT UNTIL YOU ARE SEEN IN YOUR DOCTORS OFFICE WITHIN THE NEXT 1-2 DAYS. IT IS YOUR RESPONSIBILITY TO MAKE AN APPOINTMENT FOR FOLOW-UP CARE. IF YOU HAVE A PRIMARY DOCTOR --you should call your primary doctor and schedule and appointment IF YOU DO NOT HAVE A PRIMARY DOCTOR YOU CAN CALL OUR PHYSICIAN REFERRAL HOTLINE AT . IF YOU CAN NOT AFFORD TO SEE A PHYSICIAN YOU CAN CHOSE FROM THE FOLLOWING REPLACED BY [facility] INSTITUTIONS: [facility] [address] [place] [address] [facility] [address] [place], [place] [id number] [place] [address] [address] [place] [address] Additional Instructions: Llame al doctor MAANA y uri shadi SELVIN PARA DENTRO DE 1-2 YI.Dgale a la secretaria que nosotros le instruimos hacer esta selvin.Avise o llame si harmon condicin se empeora antes de la selvin. Regresa aqui si peor o no mejor. LOPEZ LARIOS PA-C May 13, 2018 05:25
[2018-05-13] MEDS ORDERED: IBUPROFEN 600 MG TAB PO ONE (05:30)
== END 2018-05-13 05:21 | disposition home or self-care (01) ==
LOC: FTE 22:15
DX: R51 Headache (principal)
CPT/HCPCS: 70450; Z7610

== ENCOUNTER 2018-09-17 21:12 | Emergency (ER) | payer MEDICAID ==
[~2018-09-17] VITALS: Ht 149.9 cm; Wt 62.6 kg
[~2018-09-17 21:12] MED LIST changes: +DICY10CA40 PO
[2018-09-17 21:18] VITALS: Ht 149.9 cm; Wt 62.6 kg
[2018-09-17] MEDS ORDERED: morphine 4 MG/ML VIAL IV STA (22:54)
[2018-09-17] MEDS ORDERED: ONDANSETRON 4 MG INJ IV STA (22:54)
[2018-09-17] MEDS ORDERED: KETOROLAC 30 MG INJ IV STA (22:54)
[2018-09-17] MEDS ORDERED: SOD CHLORIDE 0.9% 1,000 ML IV STA (22:54)
[2018-09-17] MEDS ORDERED: FAMOTIDINE 20 MG INJ IV ONE (23:00)
[2018-09-17] MEDS ORDERED: LIDOCAINE/MYLANTA 40 ML BTL PO ONE (23:00)
--- NOTE | 2018-09-17 23:15 | ERD ---
ER Documentation Chief Complaint Chief Complaint RUQ PAIN X MONDAY. HPI 37-year-old female presents complaint of left upper quadrant pain radiating to her back since Monday. States the pain is currently 10 out of 10. In additio n she states she has had several episodes of vomiting and diarrhea. Vomitus described as nonbilious nonbloody. Diarrhea is described as nonbloody. Patient has history of cholecystectomy. Patient denies any fevers. ROS All systems reviewed and are negative except as per history of present illness. Medications Home Meds Active Scripts Famotidine* (Pepcid*) 20 Mg Tablet, 20 MG PO BID for 14 Days, TAB Prov:JOSE GUADALUPE HANSON 09/18/18 Hydrocodone/Acetaminophen ([place] 5-325 Tablet) 1 Each Tablet, 1-2 TAB PO Q6H PRN for PAIN, #15 TAB Prov:JOSE GUADALUPE HANSON 09/18/18 Dicyclomine HCl (Dicyclomine HCl) 10 Mg Capsule, 10 MG PO TID PRN for ABDOMINAL CRAMPING, #20 CAP Prov:JOSE GUADALUPE HANSON 09/18/18 Acetaminophen* (Tylophen*) 500 Mg Capsule, 1 CAP PO Q6H PRN for PAIN AND OR ELEVATED TEMP, #20 CAP Prov:LOPEZ LARIOS PA-C 05/13/18 Albuterol Sulfate* (Proair HFA*) 8.5 Gm Hfa.aer.ad, 2 PUFF INH Q4H PRN for WHEEZING AND SOB, #1 INHALER Prov:RAKEL DEJESUS MD 04/24/18 Promethazine HCl/Codeine (Prometh-Codein 6.25-10 mg/5 ml) 5 Ml Syrup, 5 ML PO TID for cough, #60 ML Prov:RAKEL DEJESUS MD 04/24/18 Azithromycin* (Zithromax*) 250 Mg Tablet, 250 MG PO DAILY for 4 Days, TAB Prov:RAKEL DEJESUS MD 04/24/18 Naproxen* (Naprosyn*) 500 Mg Tablet, 500 MG PO BID PRN for PAIN AND/OR INFLAMMATION, #30 TAB Prov:JOSE GUADALUPE LAN PA-C 02/02/18 Hydrocodone/Acetaminophen ([place] 10-325 Tablet) 1 Each Tablet, 1 TAB PO Q6H PRN for PAIN, #20 TAB Prov:PASILAMARTÍNEZ FLORES 09/30/17 Acetaminophen* (Tylophen*) 500 Mg Capsule, 1 CAP PO Q6H PRN for PAIN AND OR ELEVATED TEMP, #20 CAP Prov:PASILAMARTÍNEZ FLORES 09/30/17 Ondansetron Hcl* (Zofran*) 4 Mg Tablet, 4 MG PO Q8H PRN for NAUSEA AND/OR VOMITING, #30 TAB Prov:MARTÍNEZ BOTELLO 09/30/17 Famotidine* (Pepcid*) 20 Mg Tablet, 20 MG PO DAILY for 30 Days, TAB Prov:MARTÍNEZ BOTELLO 09/30/17 Cetirizine Hcl* (Zyrtec*) 10 Mg Capsule, 10 MG PO DAILY, #10 TAB.CHEW Prov:MICHELLE BENNETT PA-C 04/21/17 Ibuprofen* (Motrin*) 600 Mg Tab, 600 MG PO Q6, #30 TAB Prov:MICHELLE BENNETT PA-C 04/21/17 Benzonatate* (Tessalon Perle*) 100 Mg Capsule, 100 MG PO Q8H PRN for COUGH, #30 CAP Prov:MICHELLE BENNETT PA-C 04/21/17 Doxycycline Hyclate* (Doxycycline Hyclate*) 100 Mg Tablet.dr, 100 MG PO BID for 10 Days, TAB Prov:MICHELLE BENNETT PA-C 04/21/17 Famotidine* (Pepcid*) 20 Mg Tablet, 20 MG PO BID for 10 Days, #20 TAB Prov:CATHY,RONALD 04/09/17 Naproxen* (Naprosyn*) 500 Mg Tablet, 500 MG PO BID PRN for PAIN AND/OR INFLAMMATION, #20 TAB Prov:CATHY,RONALD 04/09/17 Methylprednisolone* (Medrol* DOSE PACK) 4 Mg/Dose-Pack Tab.ds.pk, 4 MG PO . DIRECTED for 7 Days, PACKET Prov:CATHY,RONALD 04/09/17 Acetamin/Butalbital/Caffeine* (Fioricet*) [id number] Tab, 1 TAB PO Q6H PRN for PAIN, #30 TAB Prov:MAYURI LYN 01/23/17 Tramadol HCl (Tramadol HCl) 50 Mg Tablet, 50 MG PO Q4 PRN for PAIN, #20 TAB Prov:ROYAL NARVAEZ MD 12/24/16 Ibuprofen* (Motrin*) 600 Mg Tab, 600 MG PO Q6, #20 TAB Prov:ROYAL NARVAEZ MD 12/24/16 Naproxen* (Naprosyn*) 500 Mg Tablet, 500 MG PO BID PRN for PAIN AND/OR INFLAMMATION, #30 TAB Prov:JOSE GUADALUPE LAN PA-C 10/16/16 Nitrofurantoin Monohyd Macrocr* (Macrobid*) 100 Mg Capsr, 100 MG PO BID for 7 Days, #14 CAP Prov:JOSE GUADALUPE LAN PA-C 10/16/16 Ranitidine Hcl* (Zantac*) 150 Mg Tablet, 150 MG PO BID PRN for EPIGASTRIC PAIN, #30 TAB Prov:TORIE BERNAL NP 07/31/16 Omeprazole* (Omeprazole*) 40 Mg Capsule.dr, 40 MG PO DAILY, #14 CAP Prov:TORIE BERNAL NP 07/31/16 Nitrofurantoin Monohyd Macrocr* (Macrobid*) 100 Mg Capsr, 100 MG PO BID for 7 Days, CAP Prov:TORIE BERNAL NP 07/31/16 Naproxen* (Naproxen*) 500 Mg Tablet, 500 MG PO BID PRN for PAIN, #10 TAB Prov:ASHLEIGH BASHIR DO 05/13/16 Azithromycin* (Zithromax*) 500 Mg Tablet, 500 MG PO DAILY for 5 Days, TAB Prov:LAURA CUEVAS PA-C 03/28/16 Acetaminophen* (Tylenol*) 325 Mg Tablet, 2 TAB PO Q4 PRN for PAIN AND OR ELEVATED TEMP, #30 TAB Prov:LAURA CUEVAS PA-C 03/28/16 Tramadol HCl (Tramadol HCl) 50 Mg Tablet, 50 MG PO Q4 PRN for PAIN, #15 TAB Prov:ROYAL NARVAEZ MD 03/24/16 Lorazepam* (Ativan*) 0.5 Mg Tablet, 0.5 MG PO Q8, #10 TAB Prov:ROYAL NARVAEZ MD 03/24/16 Cyclobenzaprine Hcl* (Cyclobenzaprine Hcl*) 10 Mg Tablet, 10 MG PO TID, #15 TAB Prov:ROYAL NARVAEZ MD 03/24/16 Ibuprofen* (Motrin*) 600 Mg Tab, 600 MG PO Q6, #15 TAB Prov:ROYAL NARVAEZ MD 03/24/16 Cyclobenzaprine Hcl* (Cyclobenzaprine Hcl*) 10 Mg Tablet, 10 MG PO TID, #15 TAB Prov:PAVEL ROSSC 03/18/16 Naproxen* (Naprosyn*) 500 Mg Tablet, 500 MG PO BID PRN for PAIN AND/OR INFLAMMATION, #30 TAB Prov:PAVEL ROSSC 03/18/16 Hydrocodone/Acetaminophen ([place] 10-325 Tablet) 1 Each Tablet, 1 TAB PO Q6H PRN for PAIN, #7 TAB Prov:PAVEL ROSSC 03/18/16 Hydrocodone/Acetaminophen ([place] 10-325 Tablet) 1 Each Tablet, 1 TAB PO Q6H PRN for PAIN, #20 TAB Prov:JAXON MORAN PA-C 02/24/16 Nitrofurantoin Monohyd Macrocr* (Macrobid*) 100 Mg Capsr, 100 MG PO BID for 7 Days, CAP Prov:JAXON MORAN PA-C 02/24/16 Hydrocodone/Acetaminophen ([place] 5-325 Tablet) 1 Each Tablet, 1 TAB PO Q6H PRN for PAIN, #7 TAB Prov:NHI MOHAMUD PA-C 11/27/15 Famotidine* (Pepcid*) 20 Mg Tablet, 20 MG PO BID for 4 Days, #30 TAB Prov:NHI MOHAMUD PA-C 11/27/15 Metronidazole* (Flagyl*) 500 Mg Tablet, 500 MG PO Q8 for 7 Days, TAB Prov:[employer] 02/22/15 Hydrocodone Bit-Acetaminophen* ([place]*) 5-325 Mg Tab, 1 TAB PO Q6H PRN for PAIN, #20 TAB Prov:[employer] 02/22/15 Allergies Allergies: Coded Allergies: ciprofloxacin (Verified Allergy, Severe, NAUSEA, DYSPNEA, RIGIDITY OF HANDS, LEGS, 12/24/16) Penicillins (Verified Allergy, Unknown, 09/29/17) ampicillin (Verified Allergy, Unknown, RASH, 12/24/16) PMhx/Soc History of Surgery: Yes (,Appy,Tubal Ligation) Anesthesia Reaction: No Hx Neurological Disorder: No Hx Respiratory Disorders: No Hx Cardiac Disorders: No Hx Psychiatric Problems: No Hx Miscellaneous Medical Probl: Yes (Gallstones) Hx Alcohol Use: No Hx Substance Use: No Hx Tobacco Use: No Smoking Status: Never smoker FmHx Family History: No diabetes, No coronary disease, No other Physical Exam Vitals Vital Signs Date Temp Pulse Resp B/P (MAP) Pulse Ox O2 O2 Flow FiO2 Time Delivery Rate 09/18/18 98.1 89 18 115/76 98 Room Air 01:58 (89) 09/17/18 100.0 90 20 167/91 99 21:18 (116) Physical Exam Const: No acute distress Head: Atraumatic Eyes: Normal Conjunctiva ENT: Normal External Ears, Nose and Mouth. Neck: Full range of motion. No meningismus. Resp: Clear to auscultation bilaterally Cardio: Regular rate and rhythm, no murmurs Abd: Soft, non tender, non distended. Normal bowel sounds. Tenderness to palpation left upper quadrant. Negative McBurney's. Skin: No petechiae or rashes Back: No midline or flank tenderness Ext: No cyanosis, or edema Neur: Awake and alert Psych: Normal Mood and Affect Result Diagram: 09/17/18 2316 09/17/18 1398 Results 24 hrs Laboratory Tests Test 09/17/18 23:08 09/17/18 23:12 09/17/18 23:59 POC Beta HCG, Qualitative NEGATIVE White Blood Count 11.5 10^3/ul Red Blood Count 4.87 10^6/ul Hemoglobin 13.8 g/dl Hematocrit 39.0 % Mean Corpuscular Volume 80.1 fl Mean Corpuscular Hemoglobin 28.3 pg Mean Corpuscular 35.4 g/dl Hemoglobin Concent Red Cell Distribution Width 12.5 % Platelet Count 257 10^3/UL Mean Platelet Volume 11.8 fl Immature Granulocytes % 0.500 % Neutrophils % 67.2 % Lymphocytes % 25.3 % Monocytes % 4.7 % Eosinophils % 1.9 % Basophils % 0.4 % Nucleated Red Blood Cells % 0.0 /100WBC Immature Granulocytes # 0.060 10^3/ul Neutrophils # 7.7 10^3/ul Lymphocytes # 2.9 10^3/ul Monocytes # 0.5 10^3/ul Eosinophils # 0.2 10^3/ul Basophils # 0.1 10^3/ul Nucleated Red Blood Cells # 0.0 10^3/ul Urine Color STRAW Urine Clarity CLEAR Urine pH 6.0 Urine Specific [place] 1.009 Urine Ketones NEGATIVE mg/dL Urine Nitrite NEGATIVE mg/dL Urine Bilirubin NEGATIVE mg/dL Urine Urobilinogen NEGATIVE mg/dL Urine Leukocyte Esterase NEGATIVE Sheree/ul Urine Microscopic RBC 0 /HPF Urine Microscopic WBC 3 /HPF Urine Squamous Epithelial Cells FEW /HPF Urine Bacteria FEW /HPF Urine Hemoglobin 1+ mg/dL Urine Glucose NEGATIVE mg/dL Urine Total Protein NEGATIVE mg/dl Sodium Level 141 mmol/L Potassium Level 3.8 mmol/L Chloride Level 107 mmol/L Carbon Dioxide Level 23 mmol/L Anion Gap 11 Blood Urea Nitrogen 14 mg/dl Creatinine 0.73 mg/dl Est Glomerular Filtrat > 60 mL/min Rate mL/min Glucose Level 127 mg/dl Calcium Level 9.7 mg/dl Total Bilirubin 0.8 mg/dl Direct Bilirubin 0.00 mg/dl Indirect Bilirubin 0.8 mg/dl Aspartate Amino 22 IU/L Transf (AST/SGOT) Alanine 15 IU/L Aminotransferase (ALT/SGPT) Alkaline Phosphatase 62 IU/L Troponin I < 0.012 ng/ml Total Protein 8.3 g/dl Albumin 4.5 g/dl Globulin 3.80 g/dl Albumin/Globulin Ratio 1.18 Lipase 94 U/L Current Medications Medications Dose Sig/Lalito Start Time Status Last (Trade) Ordered Route PRN Stop Time Admin Dose Reason Admin Sodium 1,000 ml @ Q1H STAT 09/17/18 DC 09/17/18 Chloride 1,000 mls/hr IV 22:54 23:07 09/17/18 23:53 Morphine 4 mg ONCE STAT 09/17/18 DC 09/17/18 Sulfate IV 22:54 23:07 (morphine) 09/17/18 22:59 Ondansetron 4 mg ONCE STAT 09/17/18 DC 09/17/18 HCl (Zofran IV 22:54 23:08 Inj) 7/29/19 22:59 Ketorolac 30 mg ONCE STAT 09/17/18 DC 09/17/18 Tromethamine IV 22:54 23:16 (Toradol) 09/17/18 22:59 40 ml ONCE ONCE 09/17/18 DC 09/17/18 Miscellaneous PO 23:00 23:16 Medication 09/17/18 23:01 (Gi Cocktail (2)) Famotidine 20 mg ONCE ONCE 09/17/18 DC 09/17/18 (Pepcid Iv) IV 23:00 23:16 09/17/18 23:01 Sodium 100 ml @ ud STK-MED 09/18/18 DC 09/18/18 Chloride ONCE .ROUTE 00:51 00:53 09/18/18 00:52 Iohexol 150 ml STK-MED 09/18/18 DC 09/18/18 (Omnipaque ONCE .ROUTE 00:51 00:53 300mg/ ml) 09/18/18 00:52 1 mg ONCE STAT 09/18/18 DC 09/18/18 Hydromorphone IV 01:43 01:52 HCl 09/18/18 01:44 (Dilaudid) Procedures/MDM DIAGNOSTIC IMAGING REPORT Patient: SUSY SESAY : 1980 Age: 37 Sex: F [id number] DOS: 09/17/18 2254 Ordering MD: JOSE GUADALUPE HANSON Location: [facility] Room/Bed: PROCEDURE: CT Abdomen and Pelvis with contrast. CLINICAL INDICATION: Abdomen and pelvis pain. TECHNIQUE: CT scan of the abdomen and pelvis with contrast was performed. The patient was scanned following the uncomplicated intravenous administration of 100 ml of Omnipaque-300. Coronal and sagittal reformatted images were obtained from the axial source images. Images were reviewed on a high-resolution PACS workstation. Total exam DLP is 567 mGy-cm. CTDIvol is 11 mGy. One or more of the following dose reduction techniques were used: Automated exposure control, adjustment of the mA and/or kV according to patient size, use of iterative reconstruction technique. DICOM images are available. COMPARISON: CT scan of the abdomen and pelvis dated 09/29/2017. FINDINGS: The lung bases are normal. There is no pleural effusion. The liver is normal in size and attenuation. There is no focal hepatic lesion. The gallbladder is surgically absent with clips noted in the gallbladder bed. T he bile ducts are normal. The spleen is normal in size. There is no focal splenic lesion. Both adrenals are normal with no enlargement or mass. The pancreas is unremarkable with no mass or evidence of pancreatitis. Both kidneys demonstrate normal contrast enhancement. There is no renal mass o r hydronephrosis. The abdominal aorta is not dilated. There is no retroperitoneal lymphadenopathy or mass. There is no pelvic lymphadenopathy or mass. The bladder and distal ureters are normal. The appendix is surgically absent. Surgical clips and desmond are noted at this site. The bowel and mesentery are normal. There is no free fluid or free gas. The osseous structures are unremarkable with no fracture or lytic lesion. IMPRESSION: 1. Status post appendectomy and cholecystectomy. 2. Otherwise unremarkable contrast enhanced CT scan of the abdomen and pelvis. RPTAT: QQ .Royal Ceja MD, Date Time Electronically viewed and signed by .Royal Ceja MD, on 09/18/2018 01:23 .R/ CC: JOSE GUADALUPE HANSON [id number] DIAGNOSTIC IMAGING REPORT Patient: SUSY SESAY : 1980 Age: 37 Sex: F MR #: [id number] DOS: 09/17/18 2315 Ordering MD: JOSE GUADALUPE HANSON Location: [facility] Room/Bed: PROCEDURE: XR Chest. CLINICAL INDICATION: Epigastric pain. TECHNIQUE: Single frontal view. COMPARISON: 04/24/2018. FINDINGS: The lungs are clear. The heart size is normal. There is no pleural effusion. There is no pneumothorax. IMPRESSION: 1. Normal chest radiograph. 2. No change from 04/24/2018. RPTAT: QQ .Royal Ceja MD, Date Time Electronically viewed and signed by .Royal Ceja MD, on 09/18/2018 00:07 .R/ CC: JOSE GUADALUPE HANSON [id number] DIAGNOSTIC IMAGING REPORT Patient: SUSY SESAY : 1980 Age: 37 Sex: F MR #: [id number] DOS: 09/17/18 0000 Ordering MD: JOSE GUADALUPE HANSON Location: [facility] Room/Bed: PROCEDURE: US Pelvis. CLINICAL INDICATION: Pelvic pain. TECHNIQUE: The pelvis was evaluated with transabdominal sonography in the axial and sagittal planes. COMPARISON: Pelvic ultrasound dated 09/29/2017. FINDINGS: Uterus: 8.2 x 4.7 x 6.2 cm. Endometrium: 12.3 mm. Right ovary: 3.5 x 2.3 x 1.6 cm. Left ovary: 2.8 x 1.8 x 2.4 cm. Uterine masses: None. Ovarian masses: None. Color Doppler and pulsed Doppler sonography demonstrate normal flow to the ovaries. Other pelvic masses: None. Free fluid: None. IMPRESSION: 1. Normal pelvic ultrasound. RPTAT: QQ .Royal Ceja MD, Date Time Electronically viewed and signed by .Royal Ceja MD, on 09/18/2018 00:06 .R/ CC: JOSE GUADALUPE HANSON [id number] EKG: Rate/Rhythm: Normal Sinus Rhythm QRS, ST, T-waves: No changes consistent w/ acute ischemia Impression: No evidence of ischemia or arrhythmia MDM: Basic labs, chest x-ray, EKG, troponin, pelvic ultrasound, and CT pelvis and abdomen were ordered. All results within normal limits aside from mildly elevated white count. I have low suspicion for acute coronary syndrome, AAA, mesenteric ischemia, lower lobe pneumonia, DKA, bowel perforation, cholecystitis, choledocholithiasis, ascending cholangitis, hepatic abscess, pancreatitis, PUD, splenic rupture, diverticulitis, pyelonephritis, nephrolithiasis, appendicitis, , ectopic , PID, ovarian torsion or tubo-ovarian abscess. Case was discussed with my supervising physician Dr Pickering and he stated given clinical findings, patient fit for discharge with no further treatments necessary. At this time, patient is stable for discharge and outpatient management. I have instructed the patient to follow-up with his/her primary care physician in 1-2 days. I have discussed with the patient the possibility of needing to see a specialist for further workup and imaging studies if symptoms persist. I have instructed the patient to promptly return to the ER for any new or worsening symptoms including but not limited to increased pain, fever, nausea, vomiting, w eakness or LOC. The patient and/or family expressed understanding of and agreement with this plan. All questions were answered. Home care instructions were provided. Communication with patient both during the exam and instructions for discharge were performed with using a real estate lawyer . Patient gave verbal confirmation to the practitioner, through the real estate lawyer, that they understood everything that was being said to them. DISCLAIMER: Inadvertent spelling and grammatical errors are likely due to EHR/dictation software use and do not reflect on the overall quality of patient care. Also, please note that the electronic time recorded on this note does not necessarily reflect the actual time of the patient encounter. Departure Diagnosis: Primary Impression: Abdominal pain Condition: Alla JOSE GUADALUPE HANSON Sep 17, 2018 23:15
[2018-09-18] MEDS ORDERED: SOD CHLORIDE 0.9% 100 ML ONE (00:51)
[2018-09-18] MEDS ORDERED: IOHEXOL 300MG/ML 150 ML BTL ONE (00:51)
[2018-09-18] MEDS ORDERED: HYDROmorphONE 2 MG/ML SYG IV STA (01:43)
[2018-09-18 01:58] VITALS: BP 115/76; PULSE 89; RESP 18
== END 2018-09-18 02:10 | disposition home or self-care (01) ==
LOC: FTE 21:12
DX: R10.11 Right upper quadrant pain (principal)
CPT/HCPCS: 36415; 71045; 74177; 76856; 80053; 81001; 81025; 83690; 84484; 85025; 93005; 96361; 96374; 96375; J1170; J1885; J2270; J2405; J7030; Q9967; Z7502; Z7610